=== PATIENT | male | born 1955 | race Caucasian/White ===

== ENCOUNTER 2017-01-16 13:20 | Inpatient (IN) | payer OTHER ==
[2017-01-16] VITALS (10 sets, daily range): BP systolic 115–154; BP diastolic 57–79; PULSE 76–104; RESP 11–25; O2SAT 94–100
[~2017-01-16] VITALS: Ht 182.9 cm; Wt 86.2 kg
[~2017-01-16 13:20] MED LIST: ALLO300T2 PO; LORA0.5T PO; ONDA-53 PO
[2017-01-16] MEDS ORDERED: 0.9% Sodium Chloride 1,000 ML IV ONE ×2 (13:25→15:35)
[2017-01-16] MEDS ORDERED: HYDROmorphone 0.5 mg/0.5 mL iSecure Syringe IVPUSH PRN ×2 (13:25→15:10)
--- NOTE | 2017-01-16 13:27 | ED.REPORT ---
HPI-Abd Pain M 40 and Over Date of Service Jan 16, 2017 ED Provider: Charlie Guerra PA-C Jordan is a 61-year-old male undergoing treatment for head and neck cancer who presents the emergency department for abdominal pain. Patient received cisplatin 1 week ago, and his oncologist reports responded quite well. Patient reports an initial period of nausea and vomiting following treatment which had been steadily improving. Presented to oncology for routine follow-up and fever of 102F was noted. During the course of his examination, he developed severe abdominal pain which is been steadily worsening. Treatment was attempted in clinic with IV fluids, Levaquin, pain medication but the patient continues to deteriorate. Referred to the emergency department by Dr. Montilla. The patient is neutropenic. Nursing Notes Stated Complaint: ABDOMINAL PAIN,FEVER Nursing Notes Reviewed: Yes Allergies: Coded Allergies: No Known Allergies (Verified , 01/16/17) Scheduled Allopurinol (Allopurinol) 300 Mg Tablet 300 MG PO DAILY Scheduled PRN Lorazepam (Lorazepam) 0.5 Mg Tablet 0.5 MG PO QID PRN PRN For Nausea Ondansetron (Ondansetron) 4 Mg Tablet 4 MG PO QID PRN PRN For Nausea General Time Seen by MD: 13:23 Chief Complaint Abdominal pain Sudden in Onset?: No Past Medical History Past Medical History Cancer Review of Systems General: Admits fever. Gastrointestinal: Admits abdominal pain. Denies vomiting, diarrhea. Genitourinary: Denies frequency, urgency, dysuria, hematuria. Otherwise as noted in HPI. Physical Exam General: Ill appearing, well developed, well nourished, in some distress. Head: Atraumatic, normocephalic. Eyes: Conjunctival pallor. No scleral icterus or injection. No discharge. Vision grossly intact. ENT: Voice clear, hearing grossly intact. Respiratory: Regular rate and rhythm. Breath sounds present, clear to auscultation and equal bilaterally. No respiratory distress. No increased work of breathing, speaks in complete sentences. Cardiovascular: Regular rate and rhythm, without murmur, gallop or rub. No pedal edema. Gastrointestinal: Abdomen flat and globally tender with guarding.. Bowel sounds normoactive. Back: Normal to inspection, negative midline spinous process tenderness, negative CVA tenderness Skin: Pale, Warm and dry. Neurological: Grossly nonfocal. Psychological: Alert and oriented. Speech appropriate, linear and logical. Behavior appropriate. Initial Vital Signs Vital Signs (First) Date Time Temp Pulse Resp B/P Pulse Ox O2 Delivery O2 Flow Rate FiO2 01/16/17 13:32 36.8 104 11 154/79 96 Room Air Interpretation & Diagnostics Lab Results Interpretation Result Diagram: 01/16/17 2315 01/16/175 Test 01/16/17 13:30 01/16/17 13:44 01/16/17 17:30 Urine Color Yellow (YELLOW) Urine Appearance Clear (CLEAR,HAZY) Urine pH 5.5 (5.0-8.0) Urine Specific Clever 1.015 (1.003-1.035) Urine Protein Negativemg/dL (NEG,TRACE) Urine Glucose (UA) Negativemg/dL (NEGATIVE) Urine Ketones Negativemg/dL (NEGATIVE) Urine Occult Blood Negative (NEGATIVE) Urine Nitrite Negative (NEGATIVE) Urine Bilirubin Negative (NEGATIVE) Urine Urobilinogen Normalmg/dL (NORMAL) Urine Leukocyte Esterase Negative (NEGATIVE) Urine RBC 0-2/hpf (0-2) Urine WBC 0-5/hpf (0-5) Urine Epithelial Cells Few/hpf (NONE-MOD) Urine Crystals None seen (NONE SEEN) Urine Bacteria Few/hpf (NONE-FEW) Urine Hyaline Casts None/lpf (NONE) Urine Granular Casts None seen (NONE SEEN) Urine Waxy Casts None seen (NONE SEEN) Urine Red Blood Cell Casts None seen (NONE SEEN) Urine White Blood Cell Casts None seen (NONE SEEN) Urine Mucus None seen (None Seen) Urine Trichomonas None seen (NONE SEEN) Urine Yeast None (NONE SEEN) Urinalysis Comment None Urine Culture Reflexed Not indicated Hold Urine Received (Received) Erythrocyte Sedimentation Rate 43mm/hr (0-30) Prothrombin Time 11.4sec (8.1-12.5) Prothromb Time International Ratio 1.06ratio Phosphorus Level 2.6mg/dL (2.5-4.9) Magnesium Level 1.4mg/dL (1.6-2.6) Total Bilirubin 0.7mg/dL (0.0-1.2) Aspartate Amino Transf (AST/SGOT) 31U/L (0-50) Alanine Aminotransferase (ALT/SGPT) 35U/L (0-44) Alkaline Phosphatase 63U/L (25-160) C-Reactive Protein 2.6mg/dL (0.0-0.5) Total Protein 6.4g/dL (6.4-8.4) Albumin 3.9g/dL (3.4-5.0) Prealbumin 21mg/dL (20-40) Lipase 20U/L (13-60) Procalcitonin 23.80ng/mL (0.00-0.08) Lactic Acid Level 3.5mmol/L (0.4-2.0) CT Abd / Pelvis Interpretation PROCEDURE: CT ABDOMEN AND PELVIS WITH CONTRAST ([id number]) INDICATIONS: abdominal pain IMPRESSION: Marked thickening of the hepatic flexure with adjacent inflammatory fat stranding most likely representing severe, acute infectious or inflammatory (less likely ischemic) colitis. Recommend close clinical correlation and when clinically feasible endoscopic followup to exclude the possibility of colonic malignancy, as clinically warranted. Focal left lateral wall thickening of the distal rectum above this is indeterminate and could be falsely accentuated by partially collapsed state. This finding could also be further assessed with followup endoscopy as clinically warranted. Small, probably decompressed, hiatal hernia with residual fluid in the visualized esophagus. Recommend upper GI series or upper endoscopy to exclude the possibility of distal esophageal mass. Interpretation / Wet Read by: Interpret - Radiologist Re-Eval/Medical Decision Med Decision/Clinical Course 61-year-old male undergoing treatment for cancer with cisplatin presents emergency Department with a chief complaint rapid onset abdominal pain associated with fever, neutropenia. Referred from his oncologist office after receiving 25 mg Demerol, Levaquin, normal saline. Physical examination reveals ill-appearing, pale patient with tender, extremely guarded abdomen. Mild tachycardia is noted, blood pressure is normal, afebrile in triage. CBC reveals severe neutropenia, mild anemia, thrombocytopenia. CMP reveals hyponatremia at 128, hypochloremia at 91, calcium low at 8.4. Lipase is normal. Lactic acid is 4.4 CT is ordered which reveals colonic thickening and stranding at the hepatic flexure suggestive of infectious colitis. No evidence of free air or peritonitis. Discussed the case with GI, who requested stool cultures, suggests consultation with surgery. Dr. Angel met with and examined the patient in the emergency department. Advised ICU admission, will reassess in 4 hours. Patient is provided with IV normal saline, Zosyn, metronidazole in the emergency department as well as hydromorphone. Discussed the case with , who accepted admission. Patient is transferred to the ICU in stable condition. Consultation #1: Referral / Consult Name: Rosemarie Hudson MD Call Returned at: 15:18 Note: Suggest consulting surgery. Recommends Flagyl and Zosyn, stool PCR, admission. Consultation #2: Referral / Consult Name: Gavin Angel MD Consulted With: Surgeon Call Returned at: 15:46 Proposal Specialist: Will see patient Consultation #3: Referral / Consult Name: Carey Giraldo MD Call Returned at: 16:50 Proposal Specialist: Accepts admit Discharge & Departure Primary Impression: Colitis Additional Impressions: Cancer Neutropenia Neutropenia type: secondary to cancer chemotherapy Qualified Code: D70.1 - Agranulocytosis secondary to cancer chemotherapy Vital Signs - All Vital Signs Date Time Temp Pulse Resp B/P Pulse Ox O2 Delivery O2 Flow Rate FiO2 01/16/17 13:32 36.8 104 11 154/79 96 Room Air Referrals: Tony Montilla MD EDSupervising Provider for APC: Praveen Mae MD Attending Statement I saw and evaluated the patient in conjunction with the PA. I agree with the plan and findings as documented above. In brief, 61-year-old male with a history of head and neck cancer presenting to the ED for evaluation of abdominal pain in the setting of fever. Somewhat ill- appearing, however vital signs here grossly within normal limits with the exception of mild tachycardia. Nonlabored respirations. Significant abdominal tenderness to palpation, firm. Initial findings as per above. Patient started on broad-spectrum antibiotics here in the ED. Consults as per above; appreciate input. Gen. surgery to take patient to the operating room, subsequently plan admission for further evaluation and management. Patient agreeable to plan as stated, no further questions. Charlie Guerra PA-C Jan 16, 2017 13:27 Praveen Mae MD Jan 16, 2017 15:33 3.5mmol/L (0.4-2.0) CT Abd / Pelvis Interpretation PROCEDURE: CT ABDOMEN AND PELVIS WITH CONTRAST ([id number]) INDICATIONS: abdominal pain IMPRESSION: Marked thickening of the hepatic flexure with adjacent inflammatory fat stranding most likely representing severe, acute infectious or inflammatory (less likely ischemic) colitis. Recommend close clinical correlation and when clinically feasible endoscopic followup to exclude the possibility of colonic malignancy, as clinically warranted. Focal left lateral wall thickening of the distal rectum above this is indeterminate and could be falsely accentuated by partially collapsed state. This finding could also be further assessed with followup endoscopy as clinically warranted. Small, probably decompressed, hiatal hernia with residual fluid in the visualized esophagus. Recommend upper GI series or upper endoscopy to exclude the possibility of distal esophageal mass. Interpretation / Wet Read by: Interpret - Radiologist Re-Eval/Medical Decision Med Decision/Clinical Course 61-year-old male undergoing treatment for cancer with cisplatin presents emergency Department with a chief complaint rapid onset abdominal pain associated with fever, neutropenia. Referred from his oncologist office after receiving 25 mg Demerol, Levaquin, normal saline. Physical examination reveals ill-appearing, pale patient with tender, extremely guarded abdomen. Mild tachycardia is noted, blood pressure is normal, afebrile in triage. CBC reveals severe neutropenia, mild anemia, thrombocytopenia. CMP reveals hyponatremia at 128, hypochloremia at 91, calcium low at 8.4. Lipase is normal. Lactic acid is 4.4 CT is ordered which reveals colonic thickening and stranding at the hepatic flexure suggestive of infectious colitis. No evidence of free air or peritonitis. Discussed the case with GI, who requested stool cultures, suggests consultation with surgery. Dr. Angel met with and examined the patient in the emergency department. Advised ICU admission, will reassess in 4 hours. Patient is provided with IV normal saline, Zosyn, metronidazole in the emergency department as well as hydromorphone. Discussed the case with , who accepted admission. Patient is transferred to the ICU in stable condition. Consultation #1: Referral / Consult Name: Rosemarie Hudson MD Call Returned at: 15:18 Note: Suggest consulting surgery. Recommends Flagyl and Zosyn, stool PCR, admission. Consultation #2: Referral / Consult Name: Gavin Angel MD Consulted With: Surgeon Call Returned at: 15:46 Proposal Specialist: Will see patient Consultation #3: Referral / Consult Name: Carey Giraldo MD Call Returned at: 16:50 Proposal Specialist: Accepts admit Discharge & Departure Primary Impression: Colitis Additional Impressions: Cancer Neutropenia Neutropenia type: secondary to cancer chemotherapy Qualified Code: D70.1 - Agranulocytosis secondary to cancer chemotherapy Vital Signs - All Vital Signs Date Time Temp Pulse Resp B/P Pulse Ox O2 Delivery O2 Flow Rate FiO2 01/16/17 13:32 36.8 104 11 154/79 96 Room Air Referrals: Tony Montilla MD EDSupervising Provider for APC: Praveen Mae MD Attending Statement I saw and evaluated the patient in conjunction with the PA. I agree with the plan and findings as documented above. In brief, 61-year-old male with a history of head and neck cancer presenting to the ED for evaluation of abdominal pain in the setting of fever. Somewhat ill- appearing, however vital signs here grossly within normal limits with the exception of mild tachycardia. Nonlabored respirations. Significant abdominal tenderness to palpation. Initial findings as per above. Patient started on broad-spectrum antibiotics here in the ED. Consults as per above; appreciate input. Plan admission for further evaluation and management. Patient agreeable to plan as stated, no further questions. Charlie Guerra PA-C Jan 16, 2017 13:27 Praveen Mae MD Jan 16, 2017 15:33
[2017-01-16] MEDS ORDERED: Ondansetron 2 mg/mL 2 mL Inj IVPUSH ONE (13:30)
[2017-01-16 14:01] LABS: BASOPHILS % (AUTO) 1.6 % (0-3); EOSINOPHILS % (AUTO) 0 % (0-5); MONOCYTES % (AUTO) 61.9 % (4-12); Mean Corpuscular Hemoglobin 32.3 pg (27.0-35.0); Mean Corpuscular Volume 86.5 fL (81-100); NEUTROPHILS % (AUTO) 1.6 % (40-74); Platelet Count 115 bil/L (150-400)
--- NOTE | 2017-01-16 15:04 | DRSVH ---
PROCEDURE: CT ABDOMEN AND PELVIS WITH CONTRAST ([id number]) INDICATIONS: abdominal pain TECHNIQUE: After the administration of intravenous contrast, 5 mm thick sections acquired from the diaphragm to the symphysis. 5 mm coronal and sagittal reformats were acquired. For radiation dose reduction, the following was used: automated exposure control, adjustment of mA and/or kV according to patient siz e. COMPARISON: None. FINDINGS: Image quality: Excellent. ABDOMEN: Lung bases: There is dependent atelectasis in the lung bases. Probable small collapsed hiatal hernia and residual fluid within the visualized lower esophagus. Solid organs: Liver and spleen are normal in size and enhancement. Gallbladder negative. Biliary s ystem is non dilated. Pancreas enhances normally. No adrenal nodules. Kidneys demonstrate normal s ize and enhancement, without hydronephrosis. Peritoneum and bowel: There is marked circumferential wall thickening involving the hepatic flexure, with adjacent inflammatory fat stranding. No definite free air is seen. No free fluid identified. No evidence of bowel obstruction is seen. The appendix is thought to be seen on image 65 series 2 and w ithin normal limits. There is questionable left lateral rectal wall thickening although this is indet erminate in the rectum is partially collapsed at the time of the study (image 83 series 2). Nodes and vessels: No retroperitoneal or mesenteric adenopathy by size criteria. Aorta and inferior vena cava are normal in size. Miscellaneous: No ventral hernias. PELVIS: Genitourinary: Bladder wall thickness is normal. Miscellaneous: No inguinal hernias or adenopathy. Bones: No suspicious bony lesions. No vertebral body compression fractures. There are numerous mul tilevel Schmorl's nodes IMPRESSION: Marked thickening of the hepatic flexure with adjacent inflammatory fat stranding most likely represe nting severe, acute infectious or inflammatory (less likely ischemic) colitis. Recommend close clinic al correlation and when clinically feasible endoscopic followup to exclude the possibility of colonic malignancy, as clinically warranted. Focal left lateral wall thickening of the distal rectum above t his is indeterminate and could be falsely accentuated by partially collapsed state. This finding coul d also be further assessed with followup endoscopy as clinically warranted. Small, probably decompressed, hiatal hernia with residual fluid in the visualized esophagus. Recommen d upper GI series or upper endoscopy to exclude the possibility of distal esophageal mass. Dictated by: Navdeep Garcia M.D. on 01/16/2017 at 14:51 Approved by: Navdeep Garcia M.D. on 01/16/2017 at 15:03
[2017-01-16] MEDS ORDERED: metroNIDAZOLE Inj 500 MG in IV Premix 1 EACH IV ONE (15:35)
[2017-01-16] MEDS ORDERED: Piperacillin-Tazo 3.375 Gm Inj 3.375 GM in Dextrose 5% Minibag Plus 50 ML IV ONE (15:35)
[2017-01-16] MEDS ORDERED: 0.9% Sodium Chloride 1,000 ML IV SCH (17:04)
[2017-01-16] MEDS ORDERED: Lactated Ringer's 1,000 ML IV SCH (17:04)
[2017-01-16] MEDS: 0.9% Sodium Chloride 1,000 ML IV SCH ×2 (17:04→23:44)
[2017-01-16] MEDS ORDERED: Lactated Ringer's 1,000 ML IV PRN (17:04)
[2017-01-16] MEDS ORDERED: Acetaminophen IV 1,000 MG in IV Premix 1 EACH IV PRN (17:05)
[2017-01-16] MEDS ORDERED: Ondansetron 2 mg/mL 2 mL Inj IVPUSH PRN ×2 (17:05→20:30)
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
[2017-01-16 17:53] LABS: INR 1.06 ratio
[2017-01-16 17:58] LABS: Magnesium 1.4 mg/dL (1.6-2.6); Phosphorus 2.6 mg/dL (2.5-4.9)
[2017-01-16 18:14] LABS: APPEARANCE,URINE CLEAR (CLEAR,HAZY); COLOR,URINE YELLOW (YELLOW); OCCULT BLOOD,URINE NEGATIVE (NEGATIVE); PH,URINE 5.5 (5.0-8.0); UROBILINOGEN,URINE NORMAL (NORMAL)
--- NOTE | 2017-01-16 19:34 | PCM.HPMED ---
Subjective Date of Service Jan 16, 2017 Primary Provider: Admitting Physician: Carey Giraldo MD Primary Care Physician: Elie Fritz MD Attending Physician: Gavin Angel MD Chief Complaint: Abdominal pain with chemotherapy 1 week ago History of Present Illness: Gastroenterology H&P Mr. 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 It was stage Cindy (T2, N2 B, M0). He received 1 round of Cisplatin / docetaxol about [address] to Dr. Montilla, the mass has decreased in size quit dramatically and the patient has done very well. Until about 3:30 Am 01/16/17 when the patient reported Fever and chills at home (102.6) and mild to moderate abdominal pain. He was seen in in the oncologists office today and sent over to the emergency room for further evaluation and treatment. Patient is neutropenic and His CT scan of abdomen and pelvis with IV contrast showed marked thickening of the hepatic flexure with adjacent inflammatory fat stranding most likely representing severe, acute infectious or inflammatory ( less likely ischemic) colitis. There also is focal left lateral wall thickening of the distal rectum which was indeterminate and could be falsely accentuated by partially collapsed state. Over the course of 2 hours his abdominal pain increased very rapidly, and in the setting of neutropenia, elevated lactic acid and fevers, an immediate evaluation by Infectious disease, Gastroenterology and General Surgery was sought. Dr. Angel with General Surgery has taken the patient to the OR due to symptoms consistent with an acute abdomen. Review of Systems: A comprehensive review of systems was conducted with the patient and found to be negative except as above in the History of Present Illness. Allergies Coded Allergies: No Known Allergies (Verified , 01/16/17) PMH History of hepatitis C after a blood transfusion due to manic injury to his hand in the 1970s History of basal cell carcinoma of the nose History of tobacco dependence Surgical History None Family History No known significant family history of cancer Social History Hx Alcohol Use: Yes Hx Substance Use: No Hx Tobacco Use: Yes Living Arrangement: with Family Exam Vital Signs Vital Sign - Last Date Time Temp Pulse Resp B/P Pulse Ox O2 Delivery O2 Flow Rate FiO2 01/16/17 18:12 98 25 115/65 94 Room Air 01/16/17 13:32 36.8 Exam General: Middle aged gentleman lying in bed in severe acute distress, well- developed, well-nourished, appropriately interactive HEENT: Normocephalic, atraumatic. External ears without defect. Pupils equal, round, and reactive to light and accommodation. Anicteric sclerae, moist conjunctivae, and no lid lag. Oropharynx free of erythema and cobble stoning with moist mucosa. Neck: Supple with full range of motion. No jugular venous distension. No bruits. No lymphadenopathy or thyromegaly. Cardiovascular: Tachycardic rate and rhythm with no murmurs, rubs, or gallops appreciated Pulmonary: Clear to auscultation bilaterally with no crackles, wheezes, or rhonchi. Normal respiratory effort with no use of accessory muscles. Abdomen: Bowel tones not-present. Rigid, Extremely tender to palpation diffusely , distended. No hepatosplenomegaly or masses appreciated. Extremities: No clubbing, cyanosis, edema, or lymphadenopathy appreciated. Skin: Normal temperature, turgor, and texture; no rash, ulcers, or subcutaneous nodules appreciated. Neurological: Cranial nerves grossly intact. Normal muscle strength, tone, and bulk. Reflexes, coordination, and sensory function within normal limits. No known gait impairment. Psychiatric: Normal mood and affect. Alert and oriented to person, place, and time. Lab and Diagnostics Result Diagram: 01/16/17 1344 01/16/17 1344 X-Rays, CTs and MRIs PROCEDURE: CT ABDOMEN AND PELVIS WITH CONTRAST ([id number]) INDICATIONS: abdominal pain TECHNIQUE: After the administration of intravenous contrast, 5 mm thick sections acquired from the diaphragm to the symphysis. 5 mm coronal and sagittal reformats were acquired. For radiation dose reduction, the following was used: automated exposure control, adjustment of mA and/or kV according to patient size. COMPARISON: None. FINDINGS: Image quality: Excellent. ABDOMEN: Lung bases: There is dependent atelectasis in the lung bases. Probable small collapsed hiatal hernia and residual fluid within the visualized lower esophagus. Solid organs: Liver and spleen are normal in size and enhancement. Gallbladder negative. Biliary system is non dilated. Pancreas enhances normally. No adrenal nodules. Kidneys demonstrate normal size and enhancement , without hydronephrosis. Peritoneum and bowel: There is marked circumferential wall thickening involving the hepatic flexure, with adjacent inflammatory fat stranding. No definite free air is seen. No free fluid identified. No evidence of bowel obstruction is seen. The appendix is thought to be seen on image 65 series 2 and within normal limits. There is questionable left lateral rectal wall thickening although this is indeterminate in the rectum is partially collapsed at the time of the study (image 83 series 2). Nodes and vessels: No retroperitoneal or mesenteric adenopathy by size criteria. Aorta and inferior vena cava are normal in size. Miscellaneous: No ventral hernias. PELVIS: Genitourinary: Bladder wall thickness is normal. Miscellaneous: No inguinal hernias or adenopathy. Bones: No suspicious bony lesions. No vertebral body compression fractures. There are numerous multilevel Schmorl's nodes IMPRESSION: Marked thickening of the hepatic flexure with adjacent inflammatory fat stranding most likely representing severe, acute infectious or inflammatory ( less likely ischemic) colitis. Recommend close clinical correlation and when clinically feasible endoscopic followup to exclude the possibility of colonic malignancy, as clinically warranted. Focal left lateral wall thickening of the distal rectum above this is indeterminate and could be falsely accentuated by partially collapsed state. This finding could also be further assessed with followup endoscopy as clinically warranted. Small, probably decompressed, hiatal hernia with residual fluid in the visualized esophagus. Recommend upper GI series or upper endoscopy to exclude the possibility of distal esophageal mass. Dictated by: Navdeep Garcia M.D. on 01/16/2017 at 14:51 Approved by: Navdeep Garcia M.D. on 01/16/2017 at 15:03 12-lead ECG Pending Cardiac Echo Impressions Pending Assessment & Plan # Acute abdominal pain - In the setting of neutropenia, elevated lactic acid, fevers, and severe abdominal pain patient was taken to the OR. - Continue Broad antibiotic coverage. IV Zosyn and IV Flagyl - Continue Supportive measures. - Gastroenterology will continue to follow along peripherally and will be available to assist if necessary. # Lactic acidosis # Neutropenic fever # Head and neck carcinoma # History of hepatitis C # Tobacco dependence Thank you for this most interesting consult. Pain Evaluation: Adequate Pain Control GI Prophylaxis: H2 carla VTE Prophylaxis: SCDs Resuscitation Status: CPR: Attempt Resuscitation Attending Statement agree with resident note above acute abdomen IV Zosyn General Surgery Consult Neutropenic precautions LOUIE WOODSON DO Jan 16, 2017 19:34 Rosemarie Hudson MD Jan 18, 2017 15:29
--- NOTE | 2017-01-16 20:00 | CONS ---
[address] [address] CONSULTATION REPORT PATIENT: NE HANNA : 1955 MR#: [id number] ADMIT: 01/16/2017 JOB ID: [id number] DATE OF SERVICE: 01/16/2017 CHIEF COMPLAINT/IDENTIFICATION: I have been asked by Charlie Guerra and Dr. Montilla to see this patient regarding abdominal pain. HISTORY OF PRESENT ILLNESS: The patient is a 61-year-old man recently diagnosed with what sounds to be a stage III P 16 positive squamous cell cancer of the right neck. There is no evidence of metastatic disease and plan was for him to receive chemotherapy followed by radiation therapy and then restaging. He has undergone his chemotherapy but this morning developed fairly severe right-sided abdominal pain of acute onset. He [facility] who gave him some Levaquin, transferred him over to the emergency department where CT scan has demonstrated right-sided colon inflammation. Per my discussion with the patient and his , the pain has been rapidly progressive. He has had a normal bowel movement this morning, no bloody diarrhea or any sort of diarrhea. He is beginning to belch, however, though he continues to pass gas. He has never had abdominal surgery. PAST MEDICAL HISTORY: Hepatitis C in 2016 treated with an oral agent, basal cell carcinoma, traumatic amputations of digits. MEDICATIONS: 1. Lorazepam. 2. Ondansetron. 3. Allopurinol. ALLERGIES: No known allergies. SOCIAL HISTORY: , seen with his and three adult daughters. Vital signs: He is afebrile. He is tachycardic in the 100s. His blood pressure has been as low as 102/64, was 154/79 after hydration. He is in severe pain and appears quite uncomfortable, fairly groggy from his multiple doses of intravenous narcotics. Lungs are clear. Heart sounds are regular. His abdomen is very tender, rigid on the right side with involuntary guarding. Percussion tenderness on the right but not on the left. Rectal is not performed. LABS: He is neutropenic with a white count of 0.6 and neutrophil percentage of 1.6. His platelets are 115. His hematocrit is 35. His sed rate is 43. Chemistries show a lactate of 4.4, mild hyponatremia of 128. Normal liver function tests. Normal lipase. CT scan: I reviewed the images and the reports. I agree that there is marked thickening of the hepatic flexure with adjacent inflammatory fat stranding reflecting severe inflammation of the right colon, his gallbladder does not appear involved. IMPRESSION AND PLAN: An 61-year-old man with neutropenia status post neoadjuvant chemotherapy with severe neutropenic colitis and focal peritonitis. Although in general, the approach to the would began with antibiotic therapy, given the clinical course through the past 12 hours and his current physical examination, I am concerned that he has impending perforation if not already has microperforation and, on that basis, after a discussion with Dr. Montilla times on that basis, I have recommended that after her on that basis, I have performed several serial exams over a couple of hours and recommended now that we go to the operating room for planned laparoscopic, possible open right hemicolectomy with end ileostomy and mucous fistula. I have discussed the case with Dr. Montilla and he agrees with this plan. We have discussed the possibility of placing a feeding tube in anticipation of dysphagia after follow-up radiation, but that will be an intraoperative decision I will make him based on our findings. Patient agrees to proceed. He has received a shot of pain medication, and I will have his sign the consent though, once again, everything was explained to him and he wished to proceed.
[2017-01-16] MEDS ORDERED: Atropine 0.4 mg/mL Inj IVPUSH PRN (20:30)
[2017-01-16] MEDS ORDERED: HYDROmorphone 1 mg/mL Inj IVPUSH PRN (20:30)
[2017-01-16] MEDS ORDERED: Labetalol 5 mg/mL 20 mL Inj IV PRN (20:30)
[2017-01-16] MEDS ORDERED: Phenylephrine 10,000 mCg/mL Inj IVPUSH PRN (20:30)
[2017-01-16] MEDS ORDERED: Dexamethasone 4 mg/mL Inj IVPUSH PRN (20:30)
[2017-01-16] MEDS ORDERED: EPHEDrine Sulfate 50 mg/mL Inj IVPUSH PRN (20:30)
[2017-01-16] MEDS ORDERED: MetoCLOpramide 5 mg/mL 2 mL Inj IVPUSH PRN (20:30)
[2017-01-16] MEDS ORDERED: Lactated Ringer's 500 ML IV PRN (20:30)
[2017-01-16] MEDS ORDERED: Famotidine Inj 20 MG in IV Premix 1 EACH IV SCH (20:30)
--- NOTE | 2017-01-16 20:30 | PCM.HPANE ---
Patient Data Date of Service: Jan 16, 2017 Surgeon Admitting Provider:Carey Giraldo MD Attending Provider:Gavin Angel MD Primary Care Physician:Elie Fritz MD Other Provider: Reason for Visit Colitis,Neutropenia Ht/WT & BMI Weight (Kilograms): 84.09 Body Mass Index Allergies Coded Allergies: No Known Allergies (Verified , 01/16/17) Past Anesthesia History Anesthesia History: Denies:: Abnormal Airway, Anesthesia Reactions, Difficult Intubation, Fam Anesthesia Reaction, Fam Malignant Hypertherm, Malignant Hyperthermia Diabetes History Hx Diabetes?: No Medications Reported Medications Allopurinol 300 Mg [id number] Mg PO DAILY Ref 0 01/07/17 Lorazepam 0.5 Mg Tablet0.5 Mg PO QID PRN For Nausea Ref 0 01/07/17 Ondansetron 4 Mg Tablet4 Mg PO QID PRN For Nausea 01/07/17 History History of ENT Problems?: Yes (Stage soft tissue cervical cancer) HEENT History: Denies:: Abnormal Airway Cataracts Difficult Intubation Dysphagia Glaucoma Hearing Problem Sinus Problem TMJ Denture Type: Full- Upper Full- Lower Teeth Condition: Missing Teeth Hx of Heart Problems?: No Cardiovascular History: Denies:: AICD Abdominal Aortic Aneurism Atrial Fibrillation Cardiac Surgery Chest Pain Congestive Heart Failure Coronary Artery Disease Edema Heart Murmur Hypertension Irregular Heartbeat Pacemaker Peripheral Vascular Rheumatic Fever Thrombophlebitis Valvular Heart Disease Hx of Respiratory Problem?: No Respiratory History: Denies:: Asthma COPD Chest Surgery Cough Dyspnea Emphysema Hemoptysis Oxygen Administration Pneumonia Pulmonary Embolism Tuberculosis Use of C-PAP Machine Use of Inhalers / NEBS Hx Neurologic Problems?: No Neurological History: Denies:: Alzheimer's Disease CVA Dementia Dizziness Headaches Multiple Sclerosis Parkinson's Disease Peripheral Neuropathy Seizures TIA Hx of GI Problems?: Yes (INflammatory vs ischemic colitis presenting as acute abdomen) Other History/Comment Hx Hep C Hx of Problems?: No Genitourinary History: Denies:: HX of Hemodialysis Kidney Stones Urinary Tract Infection Hx Musculoskeletal Problems?: Yes (Prior hand injury) Other History/Comment ETOH Hx Surgeries?: Yes Other History/Comment Hand surgery following trauma History Blood Transfusions: Positive for:: Blood Transfusions Denies:: Blood Transfuse Reaction Hx Diabetes: No Other Pertinent History: Hx Hep C Hx Alcohol Use: YesHx Substance Use: No Smoking Status: Former Smoker Have You Smoked inLast 12 mo: No Stop/Bang JUAN JOSE Risk Assessment: Low Risk, <3 Yes Risk Assessment Category Category 1A: Patient has history of documented sleep apnea, and HAS NOT received any narcotic, sedative or anesthesia administration during this stay. Category 1B: Patient has history of documented sleep apnea, and HAS received any narcotic , sedative or anesthesia administration during this stay Category 2: Patient has SUSPECTED Obstructive Sleep Apnea, and HAS received any narcotic , sedative or anesthesia administration during this stay. Category 3: Patient has SUSPECTED Obstructive Sleep Apnea and HAS NOT received narcotic, sedative or anesthesia administration during this stay. Category 4: Outpatient in Procedural Areas with known sleep apnea or who screen positive for High Risk via the STOP/BANG questionnaire. Exam Exam Vital Signs Vital Signs Date Time Temp Pulse Resp B/P Pulse Ox O2 Delivery O2 Flow Rate FiO2 01/16/17 18:12 98 25 115/65 94 Room Air 01/16/17 13:32 36.8 104 11 154/79 96 Room Air General Appearance: Alert, Oriented X3, Cooperative, No Acute Distress HEENT/AIRWAY: MP 2 Lungs: Clear to Auscultation, Normal Air Movement Heart: Exam Unremarkable, Regular Rate/Rhythm, No Murmurs/Rubs/Gallops Meds/Labs/Diagnostics Admission Meds Current Medications Ondansetron HCl 8 mg 8 mg ONCE ONCE IVPUSH Last administered on 01/16/17 14: 04; Start 01/16/17 at 13:30; Stop 01/16/17 at 13:31; Status DC Piperacillin Sod/ Tazobactam Sod 3.375 gm/Dextrose/ Water 50 ml @ 100 mls/hr ONCE ONCE IV Last administered on 01/16/17 16:30; Start 01/16/17 at 15:35; Stop 01/16/17 at 16:04; Status DC Metronidazole/ Sodium Chloride 500 mg/Premix 100 ml @ 200 mls/hr ONCE ONCE IV Last administered on 01/16/17 17:30; Start 01/16/17 at 15:35; Stop 01/16/17 at 16:04; Status DC Lactated Ringer's (Lr) 1,000 ml @ 150 mls/hr Q6H40M IV Last administered on 18:55; Start 01/16/17 at 17:04 Labs Test 01/16/17 13:30 01/16/17 13:44 01/16/17 17:30 Urine Color Yellow (YELLOW) Urine Appearance Clear (CLEAR,HAZY) Urine pH 5.5 (5.0-8.0) Urine Specific [place] 1.015 (1.003-1.035) Urine Protein Negativemg/dL (NEG,TRACE) Urine Glucose (UA) Negativemg/dL (NEGATIVE) Urine Ketones Negativemg/dL (NEGATIVE) Urine Occult Blood Negative (NEGATIVE) Urine Nitrite Negative (NEGATIVE) Urine Bilirubin Negative (NEGATIVE) Urine Urobilinogen Normalmg/dL (NORMAL) Urine Leukocyte Esterase Negative (NEGATIVE) Urine RBC 0-2/hpf (0-2) Urine WBC 0-5/hpf (0-5) Urine Epithelial Cells Few/hpf (NONE-MOD) Urine Crystals None seen (NONE SEEN) Urine Bacteria Few/hpf (NONE-FEW) Urine Hyaline Casts None/lpf (NONE) Urine Granular Casts None seen (NONE SEEN) Urine Waxy Casts None seen (NONE SEEN) Urine Red Blood Cell Casts None seen (NONE SEEN) Urine White Blood Cell Casts None seen (NONE SEEN) Urine Mucus None seen (None Seen) Urine Trichomonas None seen (NONE SEEN) Urine Yeast None (NONE SEEN) Urinalysis Comment None Urine Culture Reflexed Not indicated Hold Urine Received (Received) White Blood Count 0.6th/mm3 (3.8-10.1) Red Blood Count 4.06mil/mm3 (4.40-5.80) Hemoglobin 13.1g/dL (13.8-17.2) Hematocrit 35.1% (41.0-50.0) Mean Corpuscular Volume 86.5fL (81-100) Mean Corpuscular Hemoglobin 32.3pg (27.0-35.0) Mean Corpuscular Hemoglobin Concent 37.3% (32.0-37.0) Red Cell Distribution Width 11.1% (12.3-15.4) Platelet Count 115bil/L (150-400) Neutrophils (%) (Auto) 1.6% (40-74) Lymphocytes (%) (Auto) 33.3% (14-46) Monocytes (%) (Auto) 61.9% (4-12) Eosinophils (%) (Auto) 0% (0-5) Basophils (%) (Auto) 1.6% (0-3) Erythrocyte Sedimentation Rate 43mm/hr (0-30) Prothrombin Time 11.4sec (8.1-12.5) Prothromb Time International Ratio 1.06ratio Sodium Level 128mEq/L (134-144) Potassium Level 3.7mEq/L (3.5-5.2) Chloride Level 91mEq/L (97-108) Carbon Dioxide Level 19mmol/L (18-29) Blood Urea Nitrogen 19mg/dL (8-27) Creatinine 1.23mg/dL (0.76-1.27) Estimat Glomerular Filtration Rate 63mL/min (>59) Glucose Level 186mg/dL (60-99) Calcium Level 8.4mg/dL (8.5-10.1) Phosphorus Level 2.6mg/dL (2.5-4.9) Magnesium Level 1.4mg/dL (1.6-2.6) Total Bilirubin 0.7mg/dL (0.0-1.2) Aspartate Amino Transf (AST/SGOT) 31U/L (0-50) Alanine Aminotransferase (ALT/SGPT) 35U/L (0-44) Alkaline Phosphatase 63U/L (25-160) C-Reactive Protein 2.6mg/dL (0.0-0.5) Total Protein 6.4g/dL (6.4-8.4) Albumin 3.9g/dL (3.4-5.0) Prealbumin 21mg/dL (20-40) Lipase 20U/L (13-60) Procalcitonin 23.80ng/mL (0.00-0.08) Lactic Acid Level 3.5mmol/L (0.4-2.0) Plan Impression Patient chart reviewed, patient interviewed and anesthestic plan with risks, benefits, and alternatives discussed, and informed consent obtained. NPO per Anesth. Guidelines: Yes ASA Physical Status: ASA3 Plus Emergency Anesthetic Support Modalities: [place] Scope, Arterial Line, Hemodynamic Monitoring Anesthetic Plan: GA Bene/Risks/Altern/Consents: Yes HP Complete Prior to Induction: Yes Other Discussed with patient, family liklihood of requirement of invasive monitoring, central line. D/w Pt, family likelihood of need for prolonged ventilatory support in ICU setting Inderjit Diaz DO Jan 16, 2017 20:30
[2017-01-16] MEDS: Lactated Ringer's 1,000 ML IV SCH ×3 (21:00→22:45)
[2017-01-16] MEDS ORDERED: Bupivacaine-MPF 0.5% 30 mL Inj INFILTRATE ONE (21:00)
[2017-01-16] MEDS ORDERED: Calcium Chl 10% 1 Gm/10 mL Syringe IVPUSH ONE (21:35)
[2017-01-16] MEDS ORDERED: Piperacillin-Tazo 3.375 Gm Inj 3.375 GM in Dextrose 5% Minibag Plus 50 ML IV SCH (22:00)
[2017-01-16] MEDS ORDERED: Piper-Tazo 3.375 Gm/50 mL D5W Minibag Plus - Q8H over 4 hrs IV ONE ×2 (22:05)
[2017-01-16] MEDS ORDERED: fentaNYL-PF 50 mCg/mL 2 mL Inj ONE (22:35)
[2017-01-16] MEDS: fentaNYL-PF 50 mCg/mL 2 mL Inj IVPUSH PRN ×3 (22:39→22:54)
--- NOTE | 2017-01-16 22:50 | PCM.ANEP1 ---
Post Anesthesia PACU Phase 1 Assessment Date of Service: Jan 16, 2017 Vital Signs Vital Signs Date Time Temp Pulse Resp B/P Pulse Ox O2 Delivery O2 Flow Rate FiO2 01/16/17 22:45 77 19 127/76 100 Nasal Cannula 2 137/57 01/16/17 22:40 79 15 136/57 98 Nasal Cannula 2 01/16/17 22:35 76 12 133/58 98 Nasal Cannula 2 01/16/17 22:30 36.8 78 18 115/65 100 Simple Mask 8 125/58 01/16/17 18:12 98 25 115/65 94 Room Air Anesthetic Administered: GA Level of Alertness: Awake, talking DANIELLE's with Equal Strength: Yes Pain: Yes Pain Scale Score: 4 Nausea or Vomiting: No CV Function & Hydration Stable: Yes Airway Device: Oxygen Delivery: Room Air Lungs: Clear to Auscultation, Normal Air Movement PACU Phase 2 Assessment Patient Instructions Provided: N/A Inderjit Diaz DO Jan 16, 2017 22:50
[2017-01-16] MEDS ORDERED: Magnesium Sulf 4 Gm/100 mL H2O 4 GM in IV Premix 1 EACH IV ONE (23:05)
[2017-01-17] VITALS (9 sets, daily range): BP systolic 109–159; BP diastolic 58–80; PULSE 76–90; RESP 13–17; O2SAT 95–99
[2017-01-17] MEDS ORDERED: VORICONAZOLE IV SCH (00:30)
[2017-01-17] MEDS ORDERED: SODIUM CHLORIDE 0.9% IV SCH (00:30)
[2017-01-17 00:38] LABS: Mean Corpuscular Hemoglobin 31.9 pg (27.0-35.0); Mean Corpuscular Volume 86.2 fL (81-100); Platelet Count 109 bil/L (150-400)
[2017-01-17] MEDS: metroNIDAZOLE Inj 500 MG in IV Premix 1 EACH IV SCH ×2 (00:40→05:25)
[2017-01-17] MEDS: SODIUM CHLORIDE 0.9% IV SCH ×2 (00:45→09:41)
[2017-01-17] MEDS: ACYCLOVIR IV SCH ×2 (00:45→09:41)
[2017-01-17] MEDS ORDERED: Vasopressin 20 Unit/mL Inj ONE (01:26)
[2017-01-17] MEDS ORDERED: HYDROmorphone 1 mg/mL Inj ONE (01:26)
[2017-01-17] MEDS ORDERED: Ketamine 10 mg/mL 20 mL Inj ONE (01:26)
[2017-01-17] MEDS ORDERED: Ondansetron 2 mg/mL 2 mL Inj ONE (01:26)
[2017-01-17] MEDS ORDERED: Rocuronium 10 mg/mL 5 mL Inj ONE (01:26)
[2017-01-17] MEDS ORDERED: Phenylephrine/NS 100 mCg/mL 10 mL Syringe IVPUSH ONE (01:26)
[2017-01-17] MEDS ORDERED: Propofol 10,000 mCg/mL 20 mL Inj ONE (01:26)
[2017-01-17] MEDS ORDERED: fentaNYL-PF 50 mCg/mL 2 mL Inj ONE (01:26)
[2017-01-17] MEDS: fentaNYL-PF 50 mCg/mL 2 mL Inj IVPUSH PRN ×2 (01:33→03:29)
--- NOTE | 2017-01-17 02:51 | OP ---
[address] [address] OPERATIVE REPORT PATIENT: NE HANNA : 1955 MR#: [id number] ADMIT: 01/16/2017 JOB ID: [id number] DATE OF SURGERY: 01/16/2017 PREOPERATIVE DIAGNOSIS(ES): Neutropenic colitis with peritonitis. POSTOPERATIVE DIAGNOSIS(ES): Neutropenic colitis with peritonitis. PROCEDURE: Laparoscopic right hemicolectomy with end ileostomy and mucous fistula. SURGEON: 1. Gavin Angel MD. 2. Rosenda Hoang MD. LAB SPECIALIST: 1. Devon Johnson PA-C. 2. Lisa Brambila, third year medical student. A #2 child nutrition assistant was mandatory for retraction and camera operation, as well as assistance with specimen removal and mature of ostomies. INDICATION: A 61-year-old man who presents with neutropenic colitis and peritonitis on exam. He has been recommended to go to the OR for laparoscopic right hemicolectomy. FINDINGS: The patient had an inflammatory mass centered around a clearly necrotic right colon. After removing the specimen and opening on the back table there was full-thickness necrosis in several areas with thickening and mucosal slough. PROCEDURE: Patient was brought to the operating room. General anesthetic was administered. Art-line was placed. The abdomen was prepped and draped in sterile fashion. Surgical time-out was performed. He was on therapeutic antibiotics and had just received a dose of Flagyl immediately preop. We proceeded with a Stoddard catheter prior to prepping and draping as well as the patient was unable to void and he had a high volume of urine in his Stoddard. We began with a Veress needle in the left upper quadrant, followed by an optical trocar after insufflation with CO2. We then placed a 5 mm periumbilical port and then elected to place a left abdominal port for the camera, followed by 12 mm port in the lower midline and a left mid abdominal port. This was based on what was clearly maximum point of inflammation at the hepatic flexure and a dilated cecum. We began by dissecting into the plane between the mid transverse colon and the greater omentum. The plane was somewhat obliterated due to the inflammation, however, we were able to identify the duodenum and come up along toward the hepatic flexure, where it was clear that this was quite inflamed. We now went below and began by elevating the cecum and identifying the terminal ileum which was healthy in appearance. We divided the terminal ileum with a stapler and then used the LigaSure device to come fairly close to the colon, dividing the mesenteric and then the white line of Toldt. As we came up to the hepatic flexure it became clear that this was the point of maximal inflammation, and I wanted to approach that last. We; therefore, returned to the transverse colon and divided it with the stapler just to right of the midline. We then used the LigaSure device to take down the mesoappendix fairly close to the colon and eventually got to the point where the only attachments that we had were inflammatory ones posteriorly and the mesocolon fairly close to the hepatic flexure. We took this with the LigaSure and this freed up our specimen. The specimen was clearly full-thickness necrosis, but had not grossly perforated and we did not have any perforation or spillage of stool. We now proceeded to check to see that our distal colon was mobile enough to bring up mucous fistula in the left upper quadrant and we had to further mobilize the terminal ileum so that it would come up for our ileostomy. There were some congenital adhesions that had to be taken down. We checked for hemostasis. We suctioned up all of our blood. Hemostasis was good. We now proceeded to remove our specimen. We combined the two midline incisions below the umbilicus and extended below the umbilicus for approximately 4 cm incision and we placed our wound protector, and then brought our specimen out through this wound. Specimen was opened on the back table. We removed the wound protector, closed the midline fascia, and then reinsufflated. We suctioned out and irrigated appropriately. We exteriorized the terminal ileum through a right lower quadrant incision that we made for our ileostomy. We checked to be certain that this came up well despite we were still insufflating. We now grasped the distal colon with one of our left abdominal graspers and decided that this would be where we would bring out our mucous fistula. We now let our CO2 out. We exteriorized the colon for the mucous fistula. We now closed the midline incision and the two laparoscopic ports that remained as incisions. We then matured the ileostomy in a Sherin fashion and we matured the mucous fistula at the skin level. Appliance and dressings were placed. The patient tolerated the procedure well except for some brief hypotension at the beginning and end of the case, and at the time of this dictation, is extubated and is going to be transferred to the ICU with neutropenic precautions. Estimated blood loss was 50 cc. There were no complications.
[2017-01-17] MEDS: Insulin Human REGular 300 Unit/3 mL Inj SUBQ SCH ×4 (04:46→20:30)
[2017-01-17 05:07] LABS: Mean Corpuscular Hemoglobin 32.2 pg (27.0-35.0); Mean Corpuscular Volume 87.1 fL (81-100)
[2017-01-17 05:08] LABS: Platelet Count 102 bil/L (150-400)
[2017-01-17 05:19] LABS: INR 1.25 ratio
--- NOTE | 2017-01-17 05:19 | NUR ---
Admit note Admitted to CCU 2014 from PACU at 2309. IVF NS started 150ml/h. Sats on 2l/nc high 90s. Right colostomy site with drainage bag secure draining scant s/s fluid. Mucous fistula to left abdomen with small area of s/s on dressing . Stoddard cath in place with low uop. Pt arouses easily to stimulation and answers questions appropriately. Spouse, Kendra at bedside on admit updated and left for the night.
[2017-01-17] MEDS: HYDROmorphone 1 mg/mL Inj IVPUSH PRN ×3 (05:30→09:44)
[2017-01-17 05:34] LABS: Magnesium 2.5 mg/dL (1.6-2.6); Phosphorus 3.7 mg/dL (2.5-4.9)
[2017-01-17] MEDS ORDERED: Piperacillin-Tazo 3.375 Gm Inj 3.375 GM in Dextrose 5% Minibag Plus 50 ML IV SCH (06:30)
--- NOTE | 2017-01-17 06:38 | PCM.PNSURG ---
Subjective Date of Service: Jan 17, 2017 Date of Service: Jan 17, 2017 Visit Information: Reason for Visit Colitis,Neutropenia Surgery/Surgery Date Post-Op Day # 1 Date of Admission: Jan 16, 2017 at 17:47 Hospital Day # 1 Subjective: POD#1, extubated in OR, no pressors. No acute events overnight. Abdominal pain significantly improved this morning but still quite tender. We reviewed his operation and new anatomy. He denies nausea or vomiting overnight. No gas in bag , some bowel sweat in the end ileostomy bag, some drainage from the mucous fistula. Objective Vital Sign- Last 8 Hours Date Time Temp Pulse Resp B/P Pulse Ox O2 Delivery O2 Flow Rate FiO2 01/17/17 04:00 36.8 76 13 109/58 99 Nasal Cannula 2.00 01/16/17 23:30 36.5 88 15 123/71 99 Nasal Cannula 2.00 01/16/17 23:30 86 01/16/17 23:00 37.2 84 15 120/69 99 Nasal Cannula 2 01/16/17 22:55 83 15 138/59 99 Nasal Cannula 2 01/16/17 22:50 81 14 139/57 99 Nasal Cannula 2 01/16/17 22:50 Room Air 01/16/17 22:45 77 19 127/76 100 Nasal Cannula 2 137/57 01/16/17 22:40 79 15 136/57 98 Nasal Cannula 2 01/16/17 22:35 76 12 133/58 98 Nasal Cannula 2 Intake and Output- Last 8 Hour 01/17/17 Cumulative From/Thru 07:00 01/16/17 13:32 - 01/17/17 06:01 Intake Total 1334 ml 3784 ml Output Total 600 ml 1475 ml Balance 734 ml 2309 ml Intake Oral 0 ml 0 ml IV Total 1334 ml 3784 ml Output Urine Total 600 ml 1400 ml Estimated Blood Loss 75 ml General: Alert, Oriented X3, Cooperative, No Acute Distress Lungs: Clear to Auscultation, Normal Air Movement Heart: Regular Rate/Rhythm, No Murmurs/Rubs/Gallops Abdomen: Appropriately tender, Distended, No masses, Other (End ileostomy with bowel sweat in bag, no gas, ostomy is pink and moist. Incisions are c/d/i. Mucous fistula with gauze dressing with serosanguinous.) Extremities: Warm Catheters: Urethral 2 Way Wray Result Diagram: 01/17/17 0440 01/17/17 0440 Assessment & Plan Impression 61M with stage III p16+ SCC R neck s/p cycle 1 neoadjuvant chemotherapy with severe neutropenic colitis and focal peritonitis s/p laparoscopic right colectomy, mucous fistula and end ileostomy on 01/16. 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 If no N/V of abdominal distension, advance to beyond sips if tolerated. WOUND: Wound consult for ostomy education, end ileostomy and mucous fistula. End ileostomy requires ostomy bag and teaching. Mucous fistula - RN and patient to change gauze dressing as needed. Incisions, remove outer dressings on POD#2, steri strips to remain for 1-2 weeks. RENAL: Okay to keep wray today, may remove if infection risk a concern and able to use a urinal and hemodynamics and hydration status not concerning ID: Defer antibiotic, antifungal treatment for neutropenia to ID/Oncology teams. No further antibiotics are needed for post operative prophylaxis and no intraoperative findings to warrant additional antibiotics. MSK: Physical therapy consult today, dangle at edge of bed and up to chair today. General Surgery will follow on a daily basis. Appreciate CCU team, ID and Oncology management. VTE Prophylaxis: SCDs Resuscitation Status: CPR: Attempt Resuscitation Rosenda Hoang MD Jan 17, 2017 06:38
[2017-01-17] MEDS: 0.9% Sodium Chloride 1,000 ML IV SCH ×3 (07:57→20:26)
[2017-01-17] MEDS ORDERED: Dextrose 5% 500 ML IV SCH (07:57)
[2017-01-17] MEDS ORDERED: fentaNYL PCA 10 mCg/mL 30 mL Inj IV PRN (08:00)
[2017-01-17] MEDS ORDERED: MetoCLOpramide 5 mg/mL 2 mL Inj IVPUSH PRN (08:00)
[2017-01-17] MEDS: HYDROmorphone PCA 0.2 mg/mL 30 mL Inj IV PRN (10:01)
--- NOTE | 2017-01-17 10:10 | DRSVH ---
PROCEDURE: X-RAY CHEST ONE VIEW, PORTABLE ([id number]) INDICATIONS: intubated TECHNIQUE: One view of the chest was acquired. COMPARISON: Abdomen pelvis CT from 01/16/2017. FINDINGS: Surgical changes and devices: None. Lungs and pleura: No pleural effusions or pneumothorax. Right basilar atelectasis, infiltrates, or less likely aspiration. Mediastinum: Mediastinal contours appear normal. Heart size is normal. Bones and chest wall: No suspicious bony lesions. Overlying soft tissues appear unremarkable. Righ t coracoclavicular ligament soft tissue calcification. IMPRESSION: 1. Right basilar pulmonary opacity developed since the 01/16/2017 CT. Given the rapid appearance and m ay represent atelectasis, infection, or aspiration. 2. Calcification in the right coracoclavicular ligament consistent with previous injury. Dictated by: Gael Jeong M.D. on 01/17/2017 at 10:05 Approved by: Gael Jeong M.D. on 01/17/2017 at 10:08
--- NOTE | 2017-01-17 10:45 | PCM.PNMED ---
Subjective Date of Service Jan 17, 2017 Subjective Mr. 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 He received 1 round of Cisplatin / docetaxol about 7 days ago. Patient underwent right hemicolectomy due to neutropenic typhlitis. POD1. Patient reports feeling much better than last night, but still remains in 10/10 pain with abdominal palpation. Denies nausea, vomiting. Ostomy with scant output. Exam Vital Signs Vital Sign - Last Date Time Temp Pulse Resp B/P Pulse Ox O2 Delivery O2 Flow Rate FiO2 01/17/17 04:00 36.8 76 13 109/58 99 Nasal Cannula 2.00 Intake and Output 01/16/17 01/16/17 01/17/17 Cumulative From/Thru 15:00 23:00 07:00 01/16/17 13:32 - 01/17/17 06:01 Intake Total 2450 ml 1334 ml 3784 ml Output Total 875 ml 600 ml 1475 ml Balance 1575 ml 734 ml 2309 ml Intake Oral 0 ml 0 ml IV Total 2450 ml 1334 ml 3784 ml Output Urine Total 800 ml 600 ml 1400 ml Estimated Blood Loss 75 ml 75 ml Exam General: Middle aged gentleman lying in bed in no acute distress, well-developed , well-nourished, appropriately interactive HEENT: Normocephalic, atraumatic. External ears without defect. Pupils equal, round, and reactive to light and accommodation. Anicteric sclerae, moist conjunctivae, and no lid lag. Oropharynx free of erythema and cobble stoning with moist mucosa. Neck: Supple with full range of motion. No jugular venous distension. No bruits. No lymphadenopathy or thyromegaly. Cardiovascular: Tachycardic rate and rhythm with no murmurs, rubs, or gallops appreciated Pulmonary: Clear to auscultation bilaterally with no crackles, wheezes, or rhonchi. Normal respiratory effort with no use of accessory muscles. Abdomen: Bowel tones scant but present. less rigid from day before, Remains extremely tender to palpation diffusely, distended. No hepatosplenomegaly or masses appreciated. Extremities: No clubbing, cyanosis, edema, or lymphadenopathy appreciated. Skin: Normal temperature, turgor, and texture; no rash, ulcers, or subcutaneous nodules appreciated. Neurological: Cranial nerves grossly intact. Normal muscle strength, tone, and bulk. Reflexes, coordination, and sensory function within normal limits. No known gait impairment. Psychiatric: Normal mood and affect. Alert and oriented to person, place, and time. IVs and Medications Medications Reviewed: Medications were reviewed in detail Lab and Diagnostics Result Diagram: 01/17/1743901/17/17439 X-Rays, CTs and MRIs PROCEDURE: CT ABDOMEN AND PELVIS WITH CONTRAST ([id number]) INDICATIONS: abdominal pain TECHNIQUE: After the administration of intravenous contrast, 5 mm thick sections acquired from the diaphragm to the symphysis. 5 mm coronal and sagittal reformats were acquired. For radiation dose reduction, the following was used: automated exposure control, adjustment of mA and/or kV according to patient size. COMPARISON: None. FINDINGS: Image quality: Excellent. ABDOMEN: Lung bases: There is dependent atelectasis in the lung bases. Probable small collapsed hiatal hernia and residual fluid within the visualized lower esophagus. Solid organs: Liver and spleen are normal in size and enhancement. Gallbladder negative. Biliary system is non dilated. Pancreas enhances normally. No adrenal nodules. Kidneys demonstrate normal size and enhancement , without hydronephrosis. Peritoneum and bowel: There is marked circumferential wall thickening involving the hepatic flexure, with adjacent inflammatory fat stranding. No definite free air is seen. No free fluid identified. No evidence of bowel obstruction is seen. The appendix is thought to be seen on image 65 series 2 and within normal limits. There is questionable left lateral rectal wall thickening although this is indeterminate in the rectum is partially collapsed at the time of the study (image 83 series 2). Nodes and vessels: No retroperitoneal or mesenteric adenopathy by size criteria. Aorta and inferior vena cava are normal in size. Miscellaneous: No ventral hernias. PELVIS: Genitourinary: Bladder wall thickness is normal. Miscellaneous: No inguinal hernias or adenopathy. Bones: No suspicious bony lesions. No vertebral body compression fractures. There are numerous multilevel Schmorl's nodes IMPRESSION: Marked thickening of the hepatic flexure with adjacent inflammatory fat stranding most likely representing severe, acute infectious or inflammatory ( less likely ischemic) colitis. Recommend close clinical correlation and when clinically feasible endoscopic followup to exclude the possibility of colonic malignancy, as clinically warranted. Focal left lateral wall thickening of the distal rectum above this is indeterminate and could be falsely accentuated by partially collapsed state. This finding could also be further assessed with followup endoscopy as clinically warranted. Small, probably decompressed, hiatal hernia with residual fluid in the visualized esophagus. Recommend upper GI series or upper endoscopy to exclude the possibility of distal esophageal mass. Dictated by: Navdeep Garcia M.D. on 01/16/2017 at 14:51 Approved by: Navdeep Garcia M.D. on 01/16/2017 at 15:03 12-lead ECG Pending Cardiac Echo Impressions Pending Assessment & Plan # Neutropenic typhlitis with Laparoscopic right hemicolectomy and end ileostomy and mucous fistula. - POD1 - Continue Broad antibiotic coverage per ID and primary team. - Continue Supportive measures. - Gastroenterology will continue to follow along peripherally and will be available to assist if necessary. # Tonsillar Squamous cell carcinoma # History of hepatitis C # Tobacco dependence GI Prophylaxis: H2 carla VTE Prophylaxis: SCDs VTE Mechanical Devices: Intermittant Pneumatic CD Resuscitation Status: CPR: Attempt Resuscitation Attending Statement agree with resident physician note above. plan as per surgery team. LOUIE WOODSON DO Jan 17, 2017 10:45 Rosemarie Hudson MD Jan 18, 2017 15:57
--- NOTE | 2017-01-17 12:31 | CONS ---
[address] [address] CONSULTATION REPORT PATIENT: NE HANNA : 1955 MR#: [id number] ADMIT: 01/16/2017 JOB ID: [id number] DATE OF SERVICE: 01/17/2017 INFECTIOUS DISEASE CONSULTATION: I thank Dr. Tony Montilla, as well as Dr. Giraldo, for this timely consultation. REASON FOR CONSULTATION: Typhlitis. HISTORY OF PRESENT ILLNESS: The patient is a 61-year-old gentleman who was recently diagnosed with squamous cell carcinoma of the right neck. He was seen by Dr. Montilla and started on chemotherapy which included cisplatinum as well as Taxotere. He just received his first dose a week or so ago and seemed to be tolerating it pretty well until yesterday, January 16, when he developed acute right lower quadrant pain, high fevers, chills, and sweats. Because of this severe pain he was seen by Dr. Montilla yesterday evening, who called me at home, and we discussed the plan. We thought, based on an emergent CT scan, that he had typhlitis, which is also known as neutropenic enterocolitis, and that broad-spectrum antibiotics were urgently indicated. The patient was started on broad-spectrum IV antibiotics and was seen by surgery. During the night the decision was undertaken to perform a right hemicolectomy for typhlitis and that was successfully performed, with formation of an ileostomy. The surgical note from Dr. Angel indicates that there was concern about a necrotic right colon so he was taken to the operating room, where he was found to have full-thickness necrosis of parts of the colon which had not yet completely perforated. Based on this appearance, the decision was made to proceed with a right hemicolectomy and that was successfully performed last night. This morning the patient is awake, alert, and reasonably comfortable in his ICU bed. He relates the fever, chills, and sweats, and the abrupt onset of right lower quadrant pain yesterday. This morning his pain is reasonably well controlled and he no longer has fever or chills, though he obviously has some right-sided abdominal tenderness. He denies any headache, cough, shortness of breath, or other new symptomatology. PAST MEDICAL HISTORY: 1. Squamous cell carcinoma of the right pharynx. 2. History of treated hepatitis C which occurred secondary to a blood transfusion in the 1970s. 3. History of basal cell carcinoma of the nose. 4. History of smoking, though he just quit when he found out about the head and neck cancer. SOCIAL HISTORY: The patient was a beer drinker up until recently but he has had none obviously since his cancer diagnosis and start of chemo. He was also significant cigarette smoker his entire life but quit here in the last couple of weeks. He lives with his family in [place] and works for [employer]. He originally hails from [place], but has not been back there in many years. FAMILY HISTORY: Negative for TB in first- and second-degree relatives. REVIEW OF SYSTEMS: The patient has no significant headache. He denies sore throat or any change in vision. He has obvious right neck fullness as a result of his tumor, which is now being treated with chemotherapy. No significant cough shortness of breath chest pain. He did not have nausea or vomiting, but of course yesterday had the severe right-sided abdominal pain, and of course still has some abdominal pain as he is just postop. No dysuria, urgency, or frequency, though he now has a Stoddard postop. No appreciable skin rash or swelling of the joints. The remainder of the review of systems is negative. PHYSICAL EXAMINATION: Reveals an afebrile gentleman temperature 36.8, pulse 76, respiratory rate about 15, blood pressure 109/58. He is not on any vasopressors. He is saturating well on 2 L. Examination of the mental status reveals it to be completely clear. Head without trauma or temporal wasting. Eyes without conjunctivitis. Nose is normal. Oral cavity without thrush or pharyngitis. Neck is supple. Lungs reasonably clear. Scattered rhonchi. Cardiac tones regular rate and rhythm, without notable murmur. Abdomen is somewhat tender, not surprising. I did not vigorously palpate as he just came back from the OR. He does have the ileostomy present on the right side. He has a Stoddard catheter. No suprapubic fullness. No inguinal adenopathy is appreciated. He does have a right neck mass which can be visualized and palpated. His extremities are without cellulitis, synovitis, or edema. Good peripheral pulses. LABORATORY: Labs include white count currently 900, predominantly lymphocytes. Yesterday's white count did have a diff; it was 600 white cells, only 1% neutrophils, so pretty much agranulocytosis. His hematocrit 33, platelets 102. Creatinine 1.03. LFTs normal. Procalcitonin 45. Urinalysis without white cells. Micro includes negative blood cultures. A MRSA screen of the nares was negative. IMAGING: Chest x-ray shows a right basilar infiltrate which has developed just in the past day or so as that was not seen on the CT scan done just hours before. This likely represents atelectasis. The CT of the abdomen done yesterday shows thickening of the hepatic flexure with inflammatory stranding thought to be infection versus ischemic colitis. IMPRESSION: This is a 61-year-old gentleman who was in reasonably good health until very recently, when he was discovered to have stage RUBÉN pharyngeal head and neck cancer which was squamous cell. He just started on Taxotere and atka within the past 10 days or so and developed neutropenia, which he was tolerating until he developed neutropenic enterocolitis which required a hemicolectomy last night. This morning the patient is doing surprisingly well and appears really benign following his surgery. The management of neutropenic enterocolitis involves the use of antibiotics with broad spectrum including gram-negative rods as well as all anaerobes. Whether or not antifungal treatment should be added to the broad-spectrum bacteria is not completely clear. Most patients survive neutropenic enterocolitis or typhlitis just with antibiotics and recovery of white count, but in this case there was actually necrosis of the bowel, which of course required the emergent surgery. RECOMMENDATIONS: 1. I would continue with the Zosyn he is receiving; it is q.8 h. and I would prefer to give this q.6 h. in a critically ill patient such as this, and I will make that change. 2. The patient is currently receiving high-dose Zosyn. I do not see any reason to do that given that he is already on an excellent anaerobe drug. 3. I would stop the high-dose acyclovir he is receiving as I see no compelling indication for this, and that order has been written. 4. The patient is receiving voriconazole and I am not certain of the indication for that in this patient who has just recently become neutropenic for the first time. It may be reasonable to give a bit of fluconazole in addition to his Zosyn, and I think that would be easier to use than the voriconazole, as really what we are trying to prevent in this circumstance is Sarah. Will add fluconazole at a dose of 400 a day IV. 5. Will continue to watch this patient with you. I suspect he will have a rapid recovery as his white count improves. Thank you very much for this consult.
--- NOTE | 2017-01-17 13:56 | PCM.PNMED ---
Subjective Date of Service Jan 17, 2017 Subjective ICU Progress Note 61 yo M diagnosed with stage IV right oropharyngeal SCC who is currently undergoing 2 agent chemotherapy and radiation therapy who was sent to the ED for increasing abd pain, fevers, and n/v. He had a CT scan in the ED that showed marked thickening of the hepatic flexure and distal rectum with fat stranding that was suspicious for Typhlitis. ID and Surgery was consulted, and he was started on IV Zosyn and Levaquin and taken to surgery immediately last night. He is now s/p hemicolectomy with ileostomy and mucous fistula. Hospital Day #2 Overnight, his pain was still uncontrolled on Fentanyl IVp, but vitals were otherwise stable. This morning, patient reports he is having quite a bit of abdominal pain, especially with movement. He has not passed any gas or stool yet. He has been NPO since last night. He has no other complaints other than the abd pain. Exam Vital Signs Vital Sign - Last Date Time Temp Pulse Resp B/P Pulse Ox O2 Delivery O2 Flow Rate FiO2 01/17/17 04:00 36.8 76 13 109/58 99 Nasal Cannula 2.00 Intake and Output 01/16/17 01/16/17 01/17/17 Cumulative From/Thru 15:00 23:00 07:00 01/16/17 13:32 - 01/17/17 06:01 Intake Total 2450 ml 1334 ml 3784 ml Output Total 875 ml 600 ml 1475 ml Balance 1575 ml 734 ml 2309 ml Intake Oral 0 ml 0 ml IV Total 2450 ml 1334 ml 3784 ml Output Urine Total 800 ml 600 ml 1400 ml Estimated Blood Loss 75 ml 75 ml Exam Constitutional: chronically ill appearing male who appears in moderate pain Head: Normocephalic atraumatic Eyes: PERRL, non icteric Mouth: Oropharynx pink but mildly dry Neck: Soft, NT, trachea midline Chest: Clear to auscultation, normal resp effort CV: Regular rate and rhythm, S1 and S2 without murmur Abdomen: Absent BS, abdomen is still slightly tense and fairly tender to palpation. There is a fresh stoma at the 7 oclock position and a fistula wound at 5 oclock position covered in compressive bandaging. No rashes noted. Extremities: Trace bilateral pedal edema. Right biceps PICC line in place with right AC peripheral line. Area c/d/i. Missing left 5th digit Skin: Warm, dry, intact, no rashes noted. Neuro: Alert and oriented 3, DANIELLE, no focal weakness, DTRs 2/4 and equal in LEs. Psych: Mood and affect are appropriate with linear thought process IVs and Medications Medications Reviewed: Medications were reviewed in detail Lab and Diagnostics Result Diagram: 01/17/1743901/17/17439 X-Rays, CTs and MRIs PROCEDURE: CT ABDOMEN AND PELVIS WITH CONTRAST ([id number]) INDICATIONS: abdominal pain TECHNIQUE: After the administration of intravenous contrast, 5 mm thick sections acquired from the diaphragm to the symphysis. 5 mm coronal and sagittal reformats were acquired. For radiation dose reduction, the following was used: automated exposure control, adjustment of mA and/or kV according to patient size. COMPARISON: None. FINDINGS: Image quality: Excellent. ABDOMEN: Lung bases: There is dependent atelectasis in the lung bases. Probable small collapsed hiatal hernia and residual fluid within the visualized lower esophagus. Solid organs: Liver and spleen are normal in size and enhancement. Gallbladder negative. Biliary system is non dilated. Pancreas enhances normally. No adrenal nodules. Kidneys demonstrate normal size and enhancement , without hydronephrosis. Peritoneum and bowel: There is marked circumferential wall thickening involving the hepatic flexure, with adjacent inflammatory fat stranding. No definite free air is seen. No free fluid identified. No evidence of bowel obstruction is seen. The appendix is thought to be seen on image 65 series 2 and within normal limits. There is questionable left lateral rectal wall thickening although this is indeterminate in the rectum is partially collapsed at the time of the study (image 83 series 2). Nodes and vessels: No retroperitoneal or mesenteric adenopathy by size criteria. Aorta and inferior vena cava are normal in size. Miscellaneous: No ventral hernias. PELVIS: Genitourinary: Bladder wall thickness is normal. Miscellaneous: No inguinal hernias or adenopathy. Bones: No suspicious bony lesions. No vertebral body compression fractures. There are numerous multilevel Schmorl's nodes IMPRESSION: Marked thickening of the hepatic flexure with adjacent inflammatory fat stranding most likely representing severe, acute infectious or inflammatory ( less likely ischemic) colitis. Recommend close clinical correlation and when clinically feasible endoscopic followup to exclude the possibility of colonic malignancy, as clinically warranted. Focal left lateral wall thickening of the distal rectum above this is indeterminate and could be falsely accentuated by partially collapsed state. This finding could also be further assessed with followup endoscopy as clinically warranted. Small, probably decompressed, hiatal hernia with residual fluid in the visualized esophagus. Recommend upper GI series or upper endoscopy to exclude the possibility of distal esophageal mass. Dictated by: Navdeep Garcia M.D. on 01/16/2017 at 14:51 Approved by: Navdeep Garcia M.D. 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 -Currently on IV Zosyn, Flagyl, Voriconazole, and Acyclovir for broad coverage, will defer management to ID team -General surgery will manage ostomy and mucous fistula. -POD#1, starting Dilaudid AIRPORT LOCATION MANAGER for pain management. -Stable respiratory status on RA. # Lactic acidosis, acute, present on admission -Check every 2 hours lactic acid levels -Check venous blood gas -Aggressive IV fluid hydration # Neutropenic fever, acute, present on admission -Most likely related to above problem in acute abdominal pain -IV antibiotics as noted above. -IV Tylenol when necessary fevers -Blood cultures 2 if temperature is greater than 38C -Neutropenic precautions # Head and neck carcinoma, present on admission -Right-sided P 16-positive invasive squamous carcinoma moderately differentiated right tonsil and is stage RUBÉN -Further direction per oncology # History of hepatitis C, present on admission -Follow LFTs and avoid hepatotoxic agents if possible -Treated in 2016 per patient # Tobacco dependence, chronic, present on admission -Consider nicotine patch if having symptoms of withdrawal Lines: PICC Line on RUE and peripheral IV Stoddard in place since 01/[address] Disposition: If stable today and showing improvement, can step down to PCC status. Pain Evaluation: Adequate Pain Control GI Prophylaxis: H2 carla VTE Prophylaxis: SCDs VTE Mechanical Devices: Intermittant Pneumatic CD Resuscitation Status: CPR: Attempt Resuscitation Time spent CPT 66472 Attending Statement Patient seen and examined. Pertinent labs and imaging reviewed. Findings reviewed and discussed with the resident. Amendments made verbally with the resident and/or directly on this document. Agree with the above. Amilcar Elliott DO Jan 17, 2017 07:59 Celso Broderick MD Jan 17, 2017 15:53
--- NOTE | 2017-01-17 14:16 | NUR ---
NUTRITION ASSESSMENT: ASSESS: Pt is a 61yo M admitted to CCU for colitis and neutropenia. He is POD 1 for colectomy with ileostomy. Surgery is following. Pt was recently diagnosed with head and neck cancer and has undergone 1 chemo treatment. Diet was advanced to CL today and he has been tolerating bites/sips. PMHX: head and neck ca, hep c, tobacco dependence LABS: Reviewed. Na 132, Cl 96, Glu 122, Ca 8.0, Alb 3.0 MEDS: Reviewed. GI: new colostomy SKIN: no major issues CURRENT WTS: 82.9kg, BMI 24.8kg, UBW: 83kg DIET: CL, no PO yet. EST. NEEDS: CA, recent surgery Kcals: 2485-2900kcal/day (30-35kcal/kg) Pro: 100-125g/day (1.2-1.5g/kg) Fluids: 2075-2500ml/day (25-30ml/kg) NUTRITION DIAGNOSIS: 1.) Increased kcal/pro needs related to increased need for healing and cancer diagnosis as evidence by recent GI surgery and head and neck ca NUTRITION INTERVENTION: 1.) Continue to advance diet as appropriate. Will add Ensure CL BID to help increase protein/kcal intake for surgery recover/healing and Gelatain on L tray. Encouraged pt to drink Ensure CL and Gelatein to get protein while on CL diet to get protein for healing 2.) Reviewed colostomy diet with pt, and daughter. Discussed focusing on low fiber foods to start with and slowly introducing new foods into diet. Discussed how lactose can sometimes be tolerated differently after surgery so to add it back into diet slowly. Discussed importance of staying hydrated especially if he is having high colostomy output. Handout was provided. 3.) As pt has recent diagnosis of head/neck cancer, discussed importance of nutrition and focusing on keeping his wt up. Pt's has bought Ensure and products to make smoothies. She is going to buy protein powder to put in smoothies as well. Pt's appetite has been decreased lately so encouraged small, more frequent meals and focusing on higher kcal/pro foods. Pt and family are aware of the option for getting a PEG prophylactically and at this time pt does not want one. 4.) Discussed how working with a Speech Therapist to help strengthen his neck muscles may be beneficial and encouraged pt and family to bring it up with MD. 5.) Oncology RD will continue to follow pt in outpt setting. Pt and family are aware of this. MONITOR / EVAL: PO, diet advance, GI, wt, ST?, labs, POC, nutrition status. Will continue to monitor per high nutrition risk guidelines
--- NOTE | 2017-01-17 14:18 | DRSVH ---
[facility] [address] [place] [address] Echocardiogram Report Name: NE HANNA LStudy Date: 01/17/2017 Height: 72 in Hospital Exam Location: [facility] Weight: 183 lb Gender: Male BSA: 2.1 m2 : 1955 Age: 61 yrs BP: 109/58 mmHg Reason For Study: Left Ventricular Systolic Dysfunction Ordering Physician: Performed By: Shirley Rae Referring Physician: Dr. Elie Fritz Interpretation Summary Normal sinus rhythm. Normal LV size, wall thickness; normal wall motion and LV systolic function. EF is 60-65%. No significant valvular abnormalities. Normal chamber sizes. No prior study available for comparison. Procedure: A two-dimensional transthoracic echocardiogram with color flow and Doppler was performed. The study quality was technically adequate. There is no prior echocardiogram noted for this patient. Patient was supine for the exam due to post surgical pain. The heart rate ranged between 76-82 bpm during the study. Left Ventricle: The left ventricle is normal in size, wall thickness, and systolic function without any focal wall motion abnormalities. The ejection fraction is estimated to be 60-65%. There are no obvious focal wall motion abnormalities noted but poor endocardial definition reduces the sensitivity for the detection of such. relatively reduced e' velocities with pseudonormalized E/A ratio, consistent with diastolic dysfunction. Right Ventricle: The right ventricle is normal in size and function. Atria: Both atria are normal in size. The interatrial septum is intact with no evidence for an atrial septal defect. Mitral Valve: The mitral valve is normal in structure and function. There is trace mitral regurgitation. Aortic Valve: The aortic valve is trileaflet. There is mild aortic valve sclerosis. No aortic regurgitation is present. Tricuspid Valve: The tricuspid valve is normal. There is a trace or physiologic amount of tricuspid regurgitation. Pulmonic Valve: The pulmonic valve is normal in structure and function. There is a trace or physiologic amount of pulmonic regurgitation. Great Vessels: The aortic root is normal size. The ascending aorta is normal in size. The aortic arch is normal in size. The pulmonary artery is normal size. The IVC was not well visualized secondary to technical limitations making central venous pressures difficult to estimate. Pericardium/ Pleura There is no pericardial effusion. There is no pleural effusion. MMode/2D Measurements & Calculations LVIDd: 4.4 cm LVIDs: 2.5 cm LA A2 area: 25.0 cm FS: 42.5 % LA A4 area: 19.0 cm EPSS: 0.28 cm LA length (vol): 6.1 cm IVSd: 1.1 cm LA vol: 65.6 ml LVPWd: 0.96 cm LA vol index: 32.0 ml/m2 RA long axis: 4.9 cm LVOT diam: 2.2 cm RA area: 14.8 cm AoV Openin.0 cm RA vol: 37.9 ml Ao root diam: 3.3 cm RA : 18.5 ml/m2 asc Aorta Diam: 3.4 cm Ao Arch Diam (Prox Trans): 2.6 cm LV mcintosh. diameter/BSA (cm/m^2): 2.1 LV sys. diameter/BSA (cm/m^2): 1.2 RVD1 (basal): 4.2 cm TAPSE: 2.4 cm Doppler Measurements & Calculations Ao V2 max: 117.9 cm/sec MV E max miah: 77.8 cm/sec Ao max P.6 mmHg MV A max miah: 68.3 cm/sec Ao mean P.3 mmHg LVOT Max Miah: 100.6 cm/sec MICKEY(I,D): 3.6 cm sev ratio: 0.92 MV E/A: 1.1 PA V2 max: 87.8 cm/sec Med Peak E' Miah: 7.5 cm/sec PA mean P.5 mmHg E/E' med: 10.3 Lat Peak E' Miah: 9.5 cm/sec E/E' lat: 8.2 E/e' average: 9.3 MV dec time: 0.20 sec Ao V2 mean: 85.1 cm/sec Ao V2 VTI: 24.5 cm MICKEY(V,D): 3.3 cm2 LV V1 max P.0 mmHg PA V2 mean: 58.7 cm/sec LV V1 VTI: 22.5 cm MICKEY indexed to BSA (cm^2/m^2): 1.8 Reading Physician:02:17 PM
--- NOTE | 2017-01-17 14:20 | PCM.PNMED ---
Subjective Date of Service Jan 17, 2017 Subjective Today the patient states that he feels very much better compared to admission. He states that he legitimately thought he was going to he was so uncomfortable. He continues to endorse severe RLQ abdominal pain in the area overlying his surgical intervention. He denies chest pain, SOB, nausea, vomiting or diarrhea. Overnight the patient was taken to the OR for emergent surgery with Dr. Angel where he underwent right janusz-colectomy with ileostomy. Exam Vital Signs Vital Sign - Last Date Time Temp Pulse Resp B/P Pulse Ox O2 Delivery O2 Flow Rate FiO2 01/17/17 04:00 36.8 76 13 109/58 99 Nasal Cannula 2.00 Intake and Output 01/16/17 01/16/17 01/17/17 Cumulative From/Thru 15:00 23:00 07:00 01/16/17 13:32 - 01/17/17 06:01 Intake Total 2450 ml 1334 ml 3784 ml Output Total 875 ml 600 ml 1475 ml Balance 1575 ml 734 ml 2309 ml Intake Oral 0 ml 0 ml IV Total 2450 ml 1334 ml 3784 ml Output Urine Total 800 ml 600 ml 1400 ml Estimated Blood Loss 75 ml 75 ml Exam Gen: A/O x3 pleasant cooperative man in mild acute distress secondary to abdominal pain Neck: Supple, non tender, no JVD HEENT: PERRL, EOMI, no scleral icterus, no conjunctival pallor CV: RRR, no murmurs rubs or gallops Resp: Lungs CTA BL, no wheezing rales or rhonchi Abd: RLQ well healed incision without purulence or drainage, RLQ ostomy with some bright red blood expressed stoma appears beefy red and viable, significant tenderness to palpation in RLQ Extr: No clubbing cyanosis or edema Neuro: CN 2-12 grossly intact, no focal neurologic deficit Psych: Pleasant and appropriate mood and affect, expresses gratitude towards staff for his care. . IVs and Medications Medications Reviewed: Medications were reviewed in detail Lab and Diagnostics Item Value Date Time Red Blood Count 3.63 mil/mm3 L 01/17/17 0440 Mean Corpuscular Volume 87.1 fL 01/17/17 0440 Mean Corpuscular Hemoglobin 32.2 pg 01/17/170 Mean Corpuscular Hemoglobin Concent 37.0 % 01/17/17439 Red Cell Distribution Width 11.3 % L 01/17/17439 Estimat Glomerular Filtration Rate 78 mL/min 01/17/17439 Lactic Acid Level 2.9 mmol/L H 01/17/17 0840 Calcium Level 8.0 mg/dL L 01/17/17439 Phosphorus Level 3.7 mg/dL 01/17/17439 Magnesium Level 2.5 mg/dL 01/17/17439 Total Bilirubin 0.9 mg/dL 01/17/17439 Aspartate Amino Transf (AST/SGOT) 25 U/L 01/17/17439 Alanine Aminotransferase (ALT/SGPT) 29 U/L 01/17/17439 Alkaline Phosphatase 45 U/L 01/17/17439 Total Protein 5.9 g/dL L 01/17/17439 Albumin 3.0 g/dL L 01/17/17439 Procalcitonin 45.88 ng/mL H 01/17/17439 Result Diagram: 01/17/1743901/17/17439 Microbiology Blood cultures and MRSA nasal swab pending . X-Rays, CTs and MRIs PROCEDURE: CT ABDOMEN AND PELVIS WITH CONTRAST ([id number]) INDICATIONS: abdominal pain TECHNIQUE: After the administration of intravenous contrast, 5 mm thick sections acquired from the diaphragm to the symphysis. 5 mm coronal and sagittal reformats were acquired. For radiation dose reduction, the following was used: automated exposure control, adjustment of mA and/or kV according to patient size. COMPARISON: None. FINDINGS: Image quality: Excellent. ABDOMEN: Lung bases: There is dependent atelectasis in the lung bases. Probable small collapsed hiatal hernia and residual fluid within the visualized lower esophagus. Solid organs: Liver and spleen are normal in size and enhancement. Gallbladder negative. Biliary system is non dilated. Pancreas enhances normally. No adrenal nodules. Kidneys demonstrate normal size and enhancement , without hydronephrosis. Peritoneum and bowel: There is marked circumferential wall thickening involving the hepatic flexure, with adjacent inflammatory fat stranding. No definite free air is seen. No free fluid identified. No evidence of bowel obstruction is seen. The appendix is thought to be seen on image 65 series 2 and within normal limits. There is questionable left lateral rectal wall thickening although this is indeterminate in the rectum is partially collapsed at the time of the study (image 83 series 2). Nodes and vessels: No retroperitoneal or mesenteric adenopathy by size criteria. Aorta and inferior vena cava are normal in size. Miscellaneous: No ventral hernias. PELVIS: Genitourinary: Bladder wall thickness is normal. Miscellaneous: No inguinal hernias or adenopathy. Bones: No suspicious bony lesions. No vertebral body compression fractures. There are numerous multilevel Schmorl's nodes IMPRESSION: Marked thickening of the hepatic flexure with adjacent inflammatory fat stranding most likely representing severe, acute infectious or inflammatory ( less likely ischemic) colitis. Recommend close clinical correlation and when clinically feasible endoscopic followup to exclude the possibility of colonic malignancy, as clinically warranted. Focal left lateral wall thickening of the distal rectum above this is indeterminate and could be falsely accentuated by partially collapsed state. This finding could also be further assessed with followup endoscopy as clinically warranted. Small, probably decompressed, hiatal hernia with residual fluid in the visualized esophagus. Recommend upper GI series or upper endoscopy to exclude the possibility of distal esophageal mass. Dictated by: Navdeep Garcia M.D. on 01/16/2017 at 14:51 Approved by: Navdeep Garcia M.D. 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 Angel. He is much improved post operatively and is currently stable off pressors, on supplemental O2 via Nasal cannula. Neutropenic Enterocolitis s/p hemicolectomy and end ileostomy, POA, Improved -Has been stable since post-op. currently not on a pressor, stable on supplemental O2 -Initially on IV Zosyn, Flagyl, Voriconazole, and Acyclovir for broad coverage, Narrowed to Zosyn and Voriconazole -General surgery will manage ostomy and mucous fistula. -POD#1, starting Dilaudid REGULATORY ADMINISTRATOR for pain management. -Stable respiratory status on RA. -Dilaudid REGULATORY ADMINISTRATOR for analgesia -Clear Liquid diet with advancement per surgery Lactic acidosis, acute, present on admission, POA. Improving -Check every 2 hours lactic acid levels -Trending towards normal -Repeat VBGs -Aggressive IV fluid hydration Neutropenic fever, acute, present on admission, POA, Improved -Most likely related to above problem in acute abdominal pain -IV antibiotics as noted above. -IV Tylenol when necessary fevers -Blood cultures 2 if temperature is greater than 38C -Neutropenic precautions, diligent hand washing Head and neck carcinoma, present on admission. Active -Right-sided P 16-positive invasive squamous carcinoma moderately differentiated right tonsil and is stage RUBÉN -S/P cisplatin and Docetaxol therapy with apparently good results -Further direction per oncology History of hepatitis C, present on admission. Stable -Follow LFTs and avoid hepatotoxic agents if possible -Patient states that he was previously successfully treated about 1 year ago Tobacco dependence, chronic, present on admission, Active -Consider nicotine patch if having symptoms of withdrawal -Patient counseled on tobacco cessation Disposition: Anticipated date of DC difficult to determine at this juncture pending course of post operative recovery and recommendations per Oncology. Likely 3-5 days. Pain Evaluation: Adequate Pain Control GI Prophylaxis: H2 carla VTE Prophylaxis: SCDs VTE Mechanical Devices: Intermittant Pneumatic CD Resuscitation Status: CPR: Attempt Resuscitation Time spent 25 minutes Attending Statement Patient has been seen and examined by myself with certified medical records coder and agree with above history, physical, assessment and plan. Gavin Bonner DO Jan 17, 2017 14:20 Carey Giraldo MD Jan 17, 2017 15:18
[2017-01-17] MEDS: Piperacillin-Tazo 3.375 Gm Inj 3.375 GM in Dextrose 5% Minibag Plus 50 ML IV SCH ×2 (15:03→20:27)
--- NOTE | 2017-01-17 17:30 | NUR ---
VSS, afebrile. Stoddard patent with good UOP, pt would like to have it removed in AM. ABD quiet, scant sero-sang drainage from colostomy. Mucous fistula dressing with small amount of blood tinged drainage. Pain controlled well with dilaudid boluses this AM, SHANK BREAKER started with pt reluctant to use but is effective for pain control. Tolerates clear liquid diet without problems. OOB to chair, stood/marched in place without problems. Family at bedside throughout day. Questions answered, care and medications explained. Care downgraded to PCC telemetry.
[2017-01-18] VITALS (17 sets, daily range): BP systolic 127–170; BP diastolic 63–88; PULSE 83–89; RESP 16–22; O2SAT 92–96
[2017-01-18] MEDS ORDERED: VORICONAZOLE IV SCH (00:30)
[2017-01-18] MEDS ORDERED: SODIUM CHLORIDE 0.9% IV SCH (00:30)
[2017-01-18] MEDS: 0.9% Sodium Chloride 1,000 ML IV SCH (02:50)
[2017-01-18] MEDS: Piperacillin-Tazo 3.375 Gm Inj 3.375 GM in Dextrose 5% Minibag Plus 50 ML IV SCH ×4 (02:51→21:24)
[2017-01-18] MEDS: Insulin Human REGular 300 Unit/3 mL Inj SUBQ SCH ×4 (03:32→19:31)
[2017-01-18 03:35] LABS: Mean Corpuscular Hemoglobin 31.7 pg (27.0-35.0); Mean Corpuscular Volume 87.9 fL (81-100); Platelet Count 130 bil/L (150-400)
[2017-01-18 03:49] LABS: BASOPHILS % (AUTO) 0 % (0-3); EOSINOPHILS % (AUTO) 0 % (0-5); MONOCYTES % (AUTO) 14 % (4-12); NEUTROPHILS % (AUTO) 44 % (40-74)
[2017-01-18 03:58] LABS: Magnesium 2.2 mg/dL (1.6-2.6)
--- NOTE | 2017-01-18 04:10 | NUR ---
Fever: When temperature assessed by CARDIAC NURSE SPECIALIST, Pt.'s temperature indicated 37.8. Pt. offered Tylenol, however pt. refused and states "Tylenol makes my stomach upset". Additionally, temperature re-assessed, indicating a temperature of 36.4 and then 37.1 (no fever). Pt. states he is feeling fine, and further denies need for Tylenol. Will continue to monitor for signs and symptoms of impending fever.
[2017-01-18] MEDS ORDERED: Fluconazole Inj 400 MG in IV Premix 1 EACH IV SCH (08:30)
--- NOTE | 2017-01-18 09:37 | PROG NOTE ---
[address] [address] PROGRESS NOTE PATIENT: NE HANNA : 1955 MR#: [id number] ADMIT: 01/16/2017 JOB ID: [id number] DATE: 01/18/2017 SUBJECTIVE: Postop day two laparoscopic right colectomy with end ileostomy and mucous fistula. He is doing remarkably well. His pain is better controlled with his WILDLIFE AND GAME PROTECTOR. He is asking if he can get his Stoddard catheter out. On examination, his incisions look fine. His stoma bag is flat but I am told that they took 50 cc out. His abdomen is still a bit distended. LABORATORIES: Show white count is on the rise up to 3.5 with immature neutrophils as expected. His hematocrit is stable at 31. Platelet count is stable at 130. Chemistries are normal except for a mild hyponatremia. His creatinine is down to 0.94 and albumin is 2.7. Procalcitonin yesterday was 45.88. IMPRESSION AND PLAN: Doing quite well. We will cut his IV fluid back, switch him over to LR, remove his Stoddard, try to get him up. I will defer antibiotics regarding his recovering neutropenia to medicine and ID, but from a general surgery point of view, she does not need any further antibacterials following his bowel surgery.
[2017-01-18] MEDS: Lactated Ringer's 1,000 ML IV SCH ×2 (10:54→21:26)
--- NOTE | 2017-01-18 11:14 | PROG NOTE ---
[address] [address] PROGRESS NOTE PATIENT: NE HANNA : 1955 MR#: [id number] ADMIT: 01/16/2017 JOB ID: [id number] DATE: 01/17/2017 SUBJECTIVE: This is a 61-year-old man who was hospitalized yesterday with severe abdominal pain nine days after receiving his first dose of cisplatin and docetaxel for head and neck cancer. He was neutropenic and found to have typhlitis; Dr. Angel made the judgment that he required surgery and he underwent a laparoscopic right hemicolectomy with end ileostomy and mucous fistula on January 16, 2017. Since then, he has done remarkably well despite his neutropenia; his pain is markedly improved. He is alert, talkative and is about to take small amounts of clear liquids orally. The patient was said in the operative note to have had an inflammatory mass around the clearly necrotic right colon. He found full-thickness necrosis and several areas of thickening in the mucosal slough. Subjectively, the patient appears reasonably comfortable now. He still is using a POSTING SPECIALIST but is sitting in bed talking with his and daughter and is very thankful that he was able to undergo surgery. His is concerned about how long the colostomy will have to be in place and I explained to him that this is a decision that will have to be made between Surgery and Medical Oncology as his cancer treatment needs to proceed forward on a reasonably tight schedule once he has recovered from his surgery and infection. OBJECTIVE: His vital signs show a temperature of 36.7, pulse 90, respiratory rate 16, blood pressure 130/79, pulse ox 95% on room air. Head and Neck: He appears quite comfortable at this time. He is alert and talkative. Pupils equal, round and reactive. No icterus. Oral and oropharyngeal mucosa are pink and moist. The prior large isabelle mass in his right neck is virtually gone. Lung martinez are clear to auscultation. Cardiac rhythm is regular without murmur or JVD. Abdomen: There are scant but present bowel sounds. Colostomy and mucous fistula are not examined today. Extremities without edema. LABORATORY VALUES: He remains neutropenic from his chemotherapy with a white count of 0.9, hemoglobin 11.7, hematocrit 31.6, and platelets 102. The BUN and creatinine 17 and 1.03. Electrolytes normal except for sodium 132, commonly seen after cisplatin administration. The glucose is 122, calcium 8.0, albumin 3.0. Procalcitonin was 45.88 on January 17. Lactic acid was 2.9. IMAGING: Reviewed in the previous note. ASSESSMENT AND RECOMMENDATIONS: 1. Neutropenic enterocolitis/typhlitis: The patient was found to have necrotic bowel and required surgical extirpation and has gotten through that very successfully. He looks excellent and is very thankful that his pain is largely under control after feeling that he was almost going to due to the severity of his pain. He will hopefully recover his neutrophils now that he is going on 11 days out from chemotherapy but will require daily G-CSF at 480 mcg at least until his neutrophil count is 5000. This may take up to 14 days after chemotherapy and we should be treating him as long as necessary, potentially even as an outpatient to make sure that his neutrophil count remains adequate during this recovery phase. 2. Head and neck cancer. He has had a remarkable dramatic response to one dose of chemotherapy and is being treated with curative intent. For this reason, we would hopefully continue him on the same regimen of induction chemotherapy with early initiation of G-CSF. 3. Colostomy. The patient and his are naturally concerned about how long he will have to have his colostomy. They would like to have this taken down as soon as possible. I explained to him that this a conversation to have with Dr. Angel and that the simplest approach would be to wait until he has finished all of his cancer treatment. That includes three cycles of induction chemotherapy and 5-6 weeks of radiation with chemotherapy before having that surgical procedure.
[2017-01-18] MEDS ORDERED: .Epic Conversion Completed XX PRN (16:50)
--- NOTE | 2017-01-18 17:51 | NUR ---
Activity/Febrile/Stoddard Patient a/o x 4, up oob indep steady gait. Abd mildly distended, no flatus but belching, colostomy put out small amt sero-sang liq. Abd drsgs c/d/i. Patient having abd pain 5/10 using min police investigator Dilaudid. Stoddard d/c'd at 0900 and patient voiding per urinal. Patient febrile this afternoon 37.8. Tele SR 80's. Patient taking min clear liq diet, denies nausea.
--- NOTE | 2017-01-18 18:01 | NUR ---
Social Work Note: Attempted Initial Assessment/Brief Riley Data& Assessment: EMR reviewed. PERFORMANCE IMPROVEMENT ANALYST attempted to meet with pt at bedside to discuss discharge planning. Pt explained that he was not feeling well and felt exhausted and requested PERFORMANCE IMPROVEMENT ANALYST return tomorrow. Jordan eugene is a 61 year old male admitted on 01/16/2017 for colitis and neutropnia. Pt has a dx of neck and head cx. Pt has [employer] insurance coverage and lives in [place]. PERFORMANCE IMPROVEMENT ANALYST to follow up with pt to assess for any unmet needs. Pt denies any needs at this time. Plan: PERFORMANCE IMPROVEMENT ANALYST to follow up with pt when appropriate to complete initial assessment. PERFORMANCE IMPROVEMENT ANALYST to continue to follow. KRYSTLE Montilla
--- NOTE | 2017-01-18 18:04 | PCM.PNMED ---
Subjective Date of Service Jan 18, 2017 Subjective Patient has been tolerating clears but notes no gas or a significant amount of output in colostomy. He has had no nausea or vomiting. Exam Vital Signs Vital Sign - Last Date Time Temp Pulse Resp B/P Pulse Ox O2 Delivery O2 Flow Rate FiO2 01/18/17 17:57 16 96 01/18/17 16:23 37.7 88 146/79 Room Air 01/17/17 04:00 2.00 Intake and Output 01/17/17 01/17/17 01/18/17 Cumulative From/Thru 15:00 23:00 07:00 01/16/17 13:32 - 01/18/17 06:47 Intake Total 3987 ml 2004 ml 9775 ml Output Total 1600 ml 650 ml 3725 ml Balance 2387 ml 1354 ml 6050 ml Intake Oral 1380 ml 200 ml 1580 ml IV Total 2607 ml 1804 ml 8195 ml Output Urine Total 1600 ml 600 ml 3600 ml Drainage Total 50 ml 50 ml Estimated Blood Loss 75 ml Exam Constitutional middle-aged male in no acute distress Head: Normocephalic atraumatic Chest: Clear to auscultation Cor: Regular rate and rhythm S1-S2 Abdomen slightly distended bowel sounds hypoactive mild diffuse tenderness no rebound or guarding Extremities: His trace bilateral pedal edema Psych: Mood and affect are appropriate Neuro: Alert and oriented 3, motor strength is intact bilaterally Lab and Diagnostics Laboratory Tests 72 Hours Test 01/16/17 13:30 01/16/17 13:44 01/16/17 17:30 01/16/17 23:15 Urine Color Yellow (YELLOW) Urine Appearance Clear (CLEAR,HAZY) Urine pH 5.5 (5.0-8.0) Urine Specific [place] 1.015 (1.003-1.035) Urine Protein Negativemg/dL (NEG,TRACE) Urine Glucose (UA) Negativemg/dL (NEGATIVE) Urine Ketones Negativemg/dL (NEGATIVE) Urine Occult Blood Negative (NEGATIVE) Urine Nitrite Negative (NEGATIVE) Urine Bilirubin Negative (NEGATIVE) Urine Urobilinogen Normalmg/dL (NORMAL) Urine Leukocyte Esterase Negative (NEGATIVE) Urine RBC 0-2/hpf (0-2) Urine WBC 0-5/hpf (0-5) Urine Epithelial Cells Few/hpf (NONE-MOD) Urine Crystals None seen (NONE SEEN) Urine Bacteria Few/hpf (NONE-FEW) Urine Hyaline Casts None/lpf (NONE) Urine Granular Casts None seen (NONE SEEN) Urine Waxy Casts None seen (NONE SEEN) Urine Red Blood Cell Casts None seen (NONE SEEN) Urine White Blood Cell Casts None seen (NONE SEEN) Urine Mucus None seen (None Seen) Urine Trichomonas None seen (NONE SEEN) Urine Yeast None (NONE SEEN) Urinalysis Comment None Urine Culture Reflexed Not indicated Hold Urine Received (Received) White Blood Count 0.6th/mm3 (3.8-10.1) 0.8th/mm3 (3.8-10.1) Red Blood Count 4.06mil/mm3 (4.40-5.80) 3.85mil/mm3 (4.40-5.80) Hemoglobin 13.1g/dL (13.8-17.2) 12.3g/dL (13.8-17.2) Hematocrit 35.1% (41.0-50.0) 33.2% (41.0-50.0) Mean Corpuscular Volume 86.5fL (81-100) 86.2fL (81-100) Mean Corpuscular Hemoglobin 32.3pg (27.0-35.0) 31.9pg (27.0-35.0) Mean Corpuscular Hemoglobin Concent 37.3% (32.0-37.0) 37.0% (32.0-37.0) Red Cell Distribution Width 11.1% (12.3-15.4) 11.2% (12.3-15.4) Platelet Count 115bil/L (150-400) 109bil/L (150-400) Neutrophils (%) (Auto) 1.6% (40-74) % (40-74) Lymphocytes (%) (Auto) 33.3% (14-46) % (14-46) Monocytes (%) (Auto) 61.9% (4-12) % (4-12) Eosinophils (%) (Auto) 0% (0-5) % (0-5) Basophils (%) (Auto) 1.6% (0-3) % (0-3) Erythrocyte Sedimentation Rate 43mm/hr (0-30) Prothrombin Time 11.4sec (8.1-12.5) Prothromb Time International Ratio 1.06ratio Sodium Level 128mEq/L (134-144) 129mEq/L (134-144) Potassium Level 3.7mEq/L (3.5-5.2) 5.0mEq/L (3.5-5.2) Chloride Level 91mEq/L (97-108) 93mEq/L (97-108) Carbon Dioxide Level 19mmol/L (18-29) 20mmol/L (18-29) Blood Urea Nitrogen 19mg/dL (8-27) 18mg/dL (8-27) Creatinine 1.23mg/dL (0.76-1.27) 1.11mg/dL (0.76-1.27) Estimat Glomerular Filtration Rate 63mL/min (>59) 71mL/min (>59) Glucose Level 186mg/dL (60-99) 183mg/dL (60-99) Hemoglobin A1c 5.3% (4.8-5.6) Lactic Acid Level 4.4mmol/L (0.4-2.0) 3.5mmol/L (0.4-2.0) Calcium Level 8.4mg/dL (8.5-10.1) 8.3mg/dL (8.5-10.1) Phosphorus Level 2.6mg/dL (2.5-4.9) Magnesium Level 1.4mg/dL (1.6-2.6) Total Bilirubin 0.7mg/dL (0.0-1.2) Aspartate Amino Transf (AST/SGOT) 31U/L (0-50) Alanine Aminotransferase (ALT/SGPT) 35U/L (0-44) Alkaline Phosphatase 63U/L (25-160) C-Reactive Protein 2.6mg/dL (0.0-0.5) Total Protein 6.4g/dL (6.4-8.4) Albumin 3.9g/dL (3.4-5.0) Prealbumin 21mg/dL (20-40) Lipase 20U/L (13-60) Procalcitonin 23.80ng/mL (0.00-0.08) Hold Purple Top Tube Received (Received) Hold [place] Top Tube Received (Received) Test 01/17/17 00:00 01/17/17 04:40 01/17/17 08:40 01/18/17 03:20 Hemoglobin A1c 5.5% (4.8-5.6) White Blood Count 0.9th/mm3 (3.8-10.1) 3.5th/mm3 (3.8-10.1) Red Blood Count 3.63mil/mm3 (4.40-5.80) 3.56mil/mm3 (4.40-5.80) Hemoglobin 11.7g/dL (13.8-17.2) 11.3g/dL (13.8-17.2) Hematocrit 31.6% (41.0-50.0) 31.3% (41.0-50.0) Mean Corpuscular Volume 87.1fL (81-100) 87.9fL (81-100) Mean Corpuscular Hemoglobin 32.2pg (27.0-35.0) 31.7pg (27.0-35.0) Mean Corpuscular Hemoglobin Concent 37.0% (32.0-37.0) 36.1% (32.0-37.0) Red Cell Distribution Width 11.3% (12.3-15.4) 11.5% (12.3-15.4) Platelet Count 102bil/L (150-400) 130bil/L (150-400) Neutrophils (%) (Auto) % (40-74) 44% (40-74) Lymphocytes (%) (Auto) % (14-46) 27% (14-46) Monocytes (%) (Auto) % (4-12) 14% (4-12) Eosinophils (%) (Auto) % (0-5) 0% (0-5) Basophils (%) (Auto) % (0-3) 0% (0-3) Prothrombin Time 13.4sec (8.1-12.5) Prothromb Time International Ratio 1.25ratio Sodium Level 132mEq/L (134-144) 132mEq/L (134-144) Potassium Level 4.6mEq/L (3.5-5.2) 4.0mEq/L (3.5-5.2) Chloride Level 96mEq/L (97-108) 98mEq/L (97-108) Carbon Dioxide Level 23mmol/L (18-29) 23mmol/L (18-29) Blood Urea Nitrogen 17mg/dL (8-27) 15mg/dL (8-27) Creatinine 1.03mg/dL (0.76-1.27) 0.94mg/dL (0.76-1.27) Estimat Glomerular Filtration Rate 78mL/min (>59) 86mL/min (>59) Glucose Level 122mg/dL (60-99) 89mg/dL (60-99) Calcium Level 8.0mg/dL (8.5-10.1) 7.8mg/dL (8.5-10.1) Phosphorus Level 3.7mg/dL (2.5-4.9) Magnesium Level 2.5mg/dL (1.6-2.6) 2.2mg/dL (1.6-2.6) Total Bilirubin 0.9mg/dL (0.0-1.2) 0.5mg/dL (0.0-1.2) Aspartate Amino Transf (AST/SGOT) 25U/L (0-50) 30U/L (0-50) Alanine Aminotransferase (ALT/SGPT) 29U/L (0-44) 27U/L (0-44) Alkaline Phosphatase 45U/L (25-160) 38U/L (25-160) Total Protein 5.9g/dL (6.4-8.4) 6.0g/dL (6.4-8.4) Albumin 3.0g/dL (3.4-5.0) 2.7g/dL (3.4-5.0) Procalcitonin 45.88ng/mL (0.00-0.08) Lactic Acid Level 2.9mmol/L (0.4-2.0) Band Neutrophils % 13% (1-5) Metamyelocytes % 1% (0-0) Hematology Comments Result Diagram: 01/18/17 03201/18/17 032 Microbiology Blood cultures and MRSA nasal swab pending . X-Rays, CTs and MRIs PROCEDURE: CT ABDOMEN AND PELVIS WITH CONTRAST ([id number]) INDICATIONS: abdominal pain TECHNIQUE: After the administration of intravenous contrast, 5 mm thick sections acquired from the diaphragm to the symphysis. 5 mm coronal and sagittal reformats were acquired. For radiation dose reduction, the following was used: automated exposure control, adjustment of mA and/or kV according to patient size. COMPARISON: None. FINDINGS: Image quality: Excellent. ABDOMEN: Lung bases: There is dependent atelectasis in the lung bases. Probable small collapsed hiatal hernia and residual fluid within the visualized lower esophagus. Solid organs: Liver and spleen are normal in size and enhancement. Gallbladder negative. Biliary system is non dilated. Pancreas enhances normally. No adrenal nodules. Kidneys demonstrate normal size and enhancement , without hydronephrosis. Peritoneum and bowel: There is marked circumferential wall thickening involving the hepatic flexure, with adjacent inflammatory fat stranding. No definite free air is seen. No free fluid identified. No evidence of bowel obstruction is seen. The appendix is thought to be seen on image 65 series 2 and within normal limits. There is questionable left lateral rectal wall thickening although this is indeterminate in the rectum is partially collapsed at the time of the study (image 83 series 2). Nodes and vessels: No retroperitoneal or mesenteric adenopathy by size criteria. Aorta and inferior vena cava are normal in size. Miscellaneous: No ventral hernias. PELVIS: Genitourinary: Bladder wall thickness is normal. Miscellaneous: No inguinal hernias or adenopathy. Bones: No suspicious bony lesions. No vertebral body compression fractures. There are numerous multilevel Schmorl's nodes IMPRESSION: Marked thickening of the hepatic flexure with adjacent inflammatory fat stranding most likely representing severe, acute infectious or inflammatory ( less likely ischemic) colitis. Recommend close clinical correlation and when clinically feasible endoscopic followup to exclude the possibility of colonic malignancy, as clinically warranted. Focal left lateral wall thickening of the distal rectum above this is indeterminate and could be falsely accentuated by partially collapsed state. This finding could also be further assessed with followup endoscopy as clinically warranted. Small, probably decompressed, hiatal hernia with residual fluid in the visualized esophagus. Recommend upper GI series or upper endoscopy to exclude the possibility of distal esophageal mass. Dictated by: Navdeep Garcia M.D. on 01/16/2017 at 14:51 Approved by: Navdeep Garcia M.D. 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 Angel. He is much improved post operatively and is currently stable off pressors, on supplemental O2 via Nasal cannula. Neutropenic Enterocolitis s/p hemicolectomy and end ileostomy, POA, Improved -Has been stable since post-op. currently not on a pressor, stable on supplemental O2 -Initially on IV Zosyn, Flagyl, Voriconazole, and Acyclovir for broad coverage, Narrowed to Zosyn and Voriconazole -General surgery will manage ostomy and mucous fistula. -POD#1, starting Dilaudid BED AND BREAKFAST INNKEEPER for pain management. -Stable respiratory status on RA. -Dilaudid BED AND BREAKFAST INNKEEPER for analgesia -Clear Liquid diet with advancement per surgery Lactic acidosis, acute, present on admission, POA. Resolved -Check every 2 hours lactic acid levels -Trending towards normal -Repeat VBGs -Aggressive IV fluid hydration Neutropenic fever, acute, present on admission, POA, resolved -Most likely related to above problem in acute abdominal pain -IV antibiotics as noted above. -IV Tylenol when necessary fevers -Blood cultures 2 if temperature is greater than 38C -Patient has been afebrile for 24 hours -He is no longer neutropenic today on January 18. -We will continue IV antibiotics at least for another day Head and neck carcinoma, present on admission. Active -Right-sided P 16-positive invasive squamous carcinoma moderately differentiated right tonsil and is stage RUBÉN -S/P cisplatin and Docetaxol therapy with apparently good results -Further direction per oncology History of hepatitis C, present on admission. Stable -Follow LFTs and avoid hepatotoxic agents if possible -Patient states that he was previously successfully treated about 1 year ago Tobacco dependence, chronic, present on admission, Active -Consider nicotine patch if having symptoms of withdrawal -Patient counseled on tobacco cessation Disposition: Anticipated date of DC difficult to determine at this juncture pending course of post operative recovery and recommendations per Oncology. Likely 3-5 days. GI Prophylaxis: H2 carla VTE Prophylaxis: SCDs VTE Mechanical Devices: Intermittant Pneumatic CD Resuscitation Status: CPR: Attempt Resuscitation Time spent 20 minute Carey Giraldo MD Jan 18, 2017 18:04
--- NOTE | 2017-01-18 20:40 | NUR ---
Transfer to [facility]: Report given to Oscar Leyva RN. Pt. transferred to room 1011 via bed. Pt. ambulated from prior bed to new bed in room with standby assist. Denies pain. Denies SOB. Dilaudid SERVICE ORDER DISPATCHER CHIEF transferred with pt. No overt signs or symptoms of distress. VSS.
--- NOTE | 2017-01-18 20:46 | NUR ---
TRANSFERED; to room 1011 via bed from 2nd floor. Using veneer sorter dilaudid for pain control. No c/o nausea or vomiting. Addendum: 01/18/17 at 2047 by [email or web address] PASCAL RN [facility] [employer].
--- NOTE | 2017-01-18 21:29 | NUR ---
SEE PAPER CHARTING AFTER MIDNIGHT.
--- NOTE | 2017-01-18 22:57 | NUR ---
PAIN; no c/o pain or nausea. Using chaser helper dilaudid for incisional pain.
[2017-01-18] MEDS: HYDROmorphone PCA 0.2 mg/mL 30 mL Inj IV PRN (23:29)
--- NOTE | 2017-01-18 23:52 | NUR ---
GI; c/o hiccups, worried he may eventually get nauseated. Reglan given.
--- NOTE | 2017-01-22 17:12 | PATH ---
SURGICAL PATHOLOGY Attending Physician:Gavin Angel MD CASE STATUS: Signed Out PATIENT NAME: NE HANNA PID: [id number] : 1955 DATE COLLECTED:01/16/2017 00:00 SPECIMEN: Colon, Segment Resection, Non-Tumor CLINICAL HISTORY: NEUTROPENIA, COLITIS 1). RIGHT COLON FINAL DIAGNOSIS: Right Colon, Right Hemicolectomy: Segment of colon with moderate to severe active colitis. Mucosal, mural, and serosal hemorrhage/hematoma. Terminal ileum with no diagnostic abnormality. Appendix with no diagnostic abnormality. Histologically viable margins of resection. Negative for dysplasia or malignancy. ICD10: K55.0 GROSS DESCRIPTION: The specimen is received in formalin, labeled with the patient's name, sublabeled as right colon, and consists of an open segment of terminal ileum up and length-4.4 cm, proximal diameter-2.5 cm), ileocecal valve, cecum and ascending colon (length-22.4 cm, distal diameter-3.2 cm), with attached appendix (length-7.5 cm, diameter-0.8 cm), and attached adipose tissue (up to 19.3 cm in depth). The resection margins are received stapled. The mucosa is kumar and edematous with a focally congested dark kumar firm area (7.5 x 5.4 cm) located 8.5 cm from the proximal and 9.0 cm from the distal resection margins. No nodules, masses or lesions are identified. Ink code: black-resection margin. Section code: (A) proximal resection margin with ileocecal valve, longitudinally sectioned, customer loyalty representative; (B) distal resection margin, longitudinally sectioned, customer loyalty representative; (C-J) colon segment, serially sectioned and submitted proximal to distal, customer loyalty representative; (K) appendix, customer loyalty representative. 01/21/17 ICD-9 CODES: CPT CODES: 1: 51776 Electronically Signed Out Steven Nina MD, Ph.D. [facility]ology [facility] [address], [place] [address] Technical component performed at [facility], [address] [place] [address] Ave[address], [place], [address]
== END 2017-01-19 01:27 | disposition admitted as inpatient to this hospital (09) | DRG 951 ==
LOC: SED 13:20 → PCC 17:47 → CCU 23:09 → PCC 01-17 14:24 → OSC 01-18 20:38
PROVIDERS: ADMIT Specialist; ATTEND Surgery
DX: R69 Illness, unspecified (principal)